=== PATIENT | female | born 2000 | race Caucasian/White ===

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

== ENCOUNTER 2020-01-26 20:59 | Emergency (ER) | payer MEDICAID, SELFPAY ==
[2019-12-20 19:25] VITALS: BMI 23.9
[2020-01-26 21:00] VITALS: BP 110/81; PULSE 92; RESP 14; TEMP 35.6; O2SAT 98; BMI 21.4
--- NOTE | 2020-01-26 21:51 | ED.VIS.GEN ---
History of Present Illness Chief Complaint: Abd Pain Informant: Patient Narrative: Patient presented with UTI symptoms for the last few days. She describes dysuria. She has suprapubic pain. She has no vaginal complaints. No fever, chills, nausea, vomiting. She has no medical problems. He has no concerns for STDs or . Past Medical History - Allergies and Home Meds Allergies/Adverse Reactions: Allergies No Known Allergies Allergy (Verified 01/26/20 20:59) Primary Care Physician: Amy Rose MD [Primary Care Provider] - Past Medical History: None Surgical History: noncontributory Lives: With Family Smoking Status: Never smoker Alcohol: None Drugs: None Review of Systems General: Denies: Chills, Fever, Sweats Eyes: Denies: Visual changes - bilaterally, Diplopia ENT: Denies: Rhinorrhea, Sore throat Cardiovascular: Denies: Chest pain, Palpitations Respiratory: Denies: Dyspnea, Cough, Dyspnea on exertion Gastrointestinal: Reports: Abdominal pain - Suprapubic Genitourinary: Reports: Dysuria, Frequency Musculoskeletal: Denies: Myalgias, Arthralgias Skin: Denies: Rash, Abscess Neurological: Denies: Headache, Weakness Physical Exam Vital Signs/Narrative: Vital Signs Temp Pulse Resp BP Pulse Ox 01/26/20 21:00 96.1 F L 92 14 110/81 H 98 General: Well nourished, Well developed, No Acute Distress Head: Normocephalic, Atraumatic Eyes: Perrl, EOMI ENT: Moist mucous membranes, No rhinorrhea Neck: Supple, Nontender Cardiovascular: Regular rate Respiratory: No distress, CTA bilaterally, Chest nontender Abdomen: Soft, Nondistended, Normal bowel sounds, - - Out suprapubic tenderness. Back: Nontender, Normal Inspection. Negative for: CVA tenderness Skin: Normal color, No rash Neurological: Alert, Oriented x3 Diagnostic/Tx/Re-eval - Medical Decision Making Patient presents with urinary symptoms consistent with previous UTI that she has had. Her urinalysis was positive. She started on Keflex in the ED. She is given a prescription for Keflex at home as well as Pyridium. Urine culture was sent. Patient is given return precautions she is stable for discharge. Impression: 1. UTI ED Disposition - Plan for ED Patient: Disposition: Home or Assisted Living Instructions: ED CYSTITIS Female Adult Prescriptions: Cephalexin [Keflex] 500 mg PO Q12 #14 cap Transmission Status: Received by [id number] Phenazopyridine HCl [Pyridium] 200 mg PO BID PRN PRN 3 Days #6 tab PRN Reason: Pain Transmission Status: Received by [id number] Referrals: Amy Rose MD [Primary Care Provider] -
[2020-01-26 22:04] LABS: Mucous, Urine 0 SEEN /hpf (<or=2+); Red Blood Cells-Urine 0 SEEN /hpf (0-5)
[2020-01-26 22:10] LABS: Color, Urine Yellow (Yellow); Glucose, Dipstick Normal (Normal); Ketone-Dipstick Negative (Negative); Leukocyte Esterase-Dipstick 500 /ul (Negative); Nitrite-Dipstick Negative (Negative); Occult Blood-Urine 10 /ul (Negative); Protein-Dipstick 15 mg/dl (Negative); Specific Gravity, Urine 1.015 (1.002-1.030); Urine Bilirubin Dipstick Negative (Negative); Urine Clarity Cloudy (Clear); Urine Urobilinogen Normal (Normal)
[2020-01-26 22:19] LABS: Bacteria RARE /hpf (None Seen); Squamous Epithelial Cells - UA 0-5 SEEN /hpf (5-10); White Blood Cells 10-25 SEEN /hpf (0-5)
[2020-01-26] MEDS: Cephalexin 250 MG Capsule 500 MG PO (22:43)
[2020-01-26 22:51] VITALS: RESP 16
== END 2020-01-26 22:51 | disposition home or self-care (01) ==
PROVIDERS: Emergency Provider Student in an Organized Health Care Education/Training Program; PCP Pediatrics
DX: N39.0 Urinary tract infection, site not specified (principal)
CPT/HCPCS: 81001; 87086; 87088; 99283

== ENCOUNTER 2020-04-05 17:42 | Emergency (ER) | payer MEDICAID, SELFPAY ==
[2020-04-05 17:43] VITALS: BP 117/70; PULSE 100; RESP 18; TEMP 36.4; O2SAT 98; BMI 22.4
--- NOTE | 2020-04-05 18:22 | ED.DCSUM_ITS ---
History of Present Illness Chief Complaint: Vag Bld, Preg Informant: Patient Onset: Days Context: Gradual Onset Timing: Intermittent Current Severity: Moderate Maximum Severity: Moderate Narrative: The patient is a 20-year-old female with history of 1 prior that presents to the emergency department vaginal bleeding. Patient states she has been having bleeding off and on since March 13. States over the past 24 hours, is gotten more heavy. She states that she is going through 2 pads an hour. She is had some scant clots. She denies any weakness or lightheadedness. She is concerned because she had 2 - home test, and then a +1 4 days ago which corresponds with the increase in bleeding. She does have some abdominal cramping but denies any kd pain. She is otherwise been in her normal state of health. Prior similar symptoms: No Recent Illness/Hospitalization: No Past Medical History - Allergies and Home Meds Allergies/Adverse Reactions: Allergies No Known Allergies Allergy (Verified 04/05/20 17:46) Primary Care Physician: Aym Rose MD [Primary Care Provider] - Prior records reviewed: Yes Past Medical History: None Surgical History: noncontributory Smoking Status: Never smoker Review of Systems General: Denies: Chills, Fever, Sweats Eyes: Denies: Visual changes - bilaterally, Diplopia ENT: Denies: Rhinorrhea, Sore throat Cardiovascular: Denies: Chest pain, Palpitations Respiratory: Denies: Dyspnea, Cough, Dyspnea on exertion Gastrointestinal: Denies: Abdominal pain, Nausea, Vomiting, Diarrhea, Melena, Hematochezia Genitourinary: Denies: Dysuria, Hematuria, Frequency Musculoskeletal: Denies: Back pain, Extremity Pain Skin: Denies: Rash, Wounds Neurological: Denies: Headache, Weakness, Numbness Physical Exam Vital Signs/Narrative: Vital Signs Temp Pulse Resp BP Pulse Ox 04/05/20 17:43 97.5 F L 100 18 117/70 98 Inital Vital Signs reviewed: Yes General: Well nourished, Well developed, No Acute Distress Head: Normocephalic, Atraumatic Eyes: Perrl, EOMI ENT: Moist mucous membranes, No rhinorrhea Neck: Supple, Nontender Cardiovascular: Regular rate, Regular rhythm, No murmurs Respiratory: No distress, CTA bilaterally, Chest nontender Abdomen: Soft, Nontender, Nondistended, Normal bowel sounds Back: Nontender, Normal Inspection Extremities: Nontender, No edema Skin: Normal color, No rash Neurological: Alert, Oriented x3, Cranial nerves II-XII grossly intact, Normal Strength, Normal Sensation Psychological: Normal affect, Normal Mood Diagnostic/Tx/Re-eval Abnormal Lab Results 04/05/20 04/05/20 18:35 18:35 WBC 7.1 RBC 4.27 Hgb 12.5 Hct 38.5 MCV 90.2 MCH 29.3 MCHC 32.5 RDW Std Deviation 39.9 RDW Coeff of Nakia 12.2 Plt Count 260 MPV 10.6 Immature Gran % (Auto) 0.300 Neut % (Auto) 50.8 Lymph % (Auto) 39.3 Swift % (Auto) 6.6 Eos % (Auto) 2.7 Baso % (Auto) 0.3 Absolute Neuts (auto) 3.6 Absolute Lymphs (auto) 2.78 Nucleated RBC % 0 HCG, Quant < 1 - Medical Decision Making Patient presents with vaginal bleeding concerned that she may be . Her abdomen is soft and nontender. IV was established. She was given fluids. She is not tachycardic or hypotensive. CBC is unremarkable. The patient's quant is less than 1. On reevaluation, she is resting comfortably. I did employment counselor her th is is likely a false positive home test. She did recently have delivery 7 months ago and has been having some irregular bleeding since. I did employment counselor her on the importance of following up with [employer]. She will be discharged home. Impression 1. Irregular vaginal bleeding ED Disposition - Plan for ED Patient: Instructions: ED Bleed Irregular Vaginal Referrals: Amy Rose MD [Primary Care Provider] -
[2020-04-05] MEDS: 0.9% Normal Saline 1,000 ML 1000 ML IV (18:37)
[2020-04-05 18:46] LABS: Mucous, Urine 0 SEEN /hpf (<or=2+)
[2020-04-05 18:48] LABS: Color, Urine Yellow (Yellow); Glucose, Dipstick Normal (Normal); Ketone-Dipstick 5 mg/dl (Negative); Leukocyte Esterase-Dipstick 100 /ul (Negative); Nitrite-Dipstick Positive (Negative); Occult Blood-Urine 250 /ul (Negative); Protein-Dipstick 30 mg/dl (Negative); Urine Bilirubin Dipstick Negative (Negative); Urine Clarity Cloudy (Clear); Urine Urobilinogen Normal (Normal)
[2020-04-05 18:49] LABS: Absolute Lymphocyte Count 2.78 X10^3/uL (0.83-4.51); Absolute Neutrophil Count 3.6 X10^3/uL (2.0-7.7); Basophil# 0.02 X10^3/uL; Basophil% 0.3 % (0-1); Eosinophil# 0.19 X10^3/uL; Eosinophils% 2.7 % (0-5); Hematocrit 38.5 % (37-47); Hemoglobin 12.5 g/dL (12.0-15.0); Lymphocyte # 2.78 X10^3/ul (4.0); Lymphocyte % 39.3 % (19-41); Mean Corp Hgb Conc 32.5 g/dL (32-36); Mean Corpuscular Hgb 29.3 pg (27.0-32.0); Mean Corpuscular Volume 90.2 fL (81-99); Mean Platelet Vol. 10.6 fl (6.2-12.0); Monocyte# 0.47 X10^3/uL; Monocyte% 6.6 % (0-10); NRBC Flagged by Analyzer 0 % (0-5); Neutrophil # 3.59 X10^3/uL (2.7-7.7); Neutrophil % 50.8 % (47-70); Platelet Count 260 K/mm3 (150-450); RBC Distribution Width CV 12.2 % (11.6-14.6); RBC Distribution Width SD 39.9 fl (35.1-43.9); Red Blood Count 4.27 M/mm3 (4.2-5.4); White Blood Count 7.1 K/mm3 (4.4-11.0)
[2020-04-05 19:03] LABS: hCG Titer Quant., Serum < 1 mIU/mL (1-3)
[2020-04-05 19:20] LABS: Bacteria 3+ /hpf (None Seen); Red Blood Cells-Urine 50-100 SEEN /hpf (0-5); Squamous Epithelial Cells - UA 5-10 SEEN /hpf (5-10); White Blood Cells 25-50 SEEN /hpf (0-5)
[2020-04-05 19:21] LABS: Amorphous Sediment 1+ URATE
[2020-04-05 19:35] VITALS: RESP 18
== END 2020-04-05 19:36 | disposition home or self-care (01) ==
LOC: ED 18:54
PROVIDERS: Emergency Provider Emergency Medicine; PCP Pediatrics
DX: N93.9 Abnormal uterine and vaginal bleeding, unspecified (principal)
CPT/HCPCS: 81001; 84702; 85025; 96360; 99283; J7030

== ENCOUNTER 2020-11-14 22:23 | Emergency (ER) | payer MEDICAID, SELFPAY ==
[2020-11-14 22:24] VITALS: BP 117/80; PULSE 90; RESP 16; TEMP 36.7; O2SAT 96; BMI 22.8
[2020-11-14 22:38] LABS: Mucous, Urine 0 SEEN /hpf (<or=2+); Red Blood Cells-Urine 0 SEEN /hpf (0-5)
[2020-11-14 22:41] LABS: Color, Urine Yellow (Yellow); Glucose, Dipstick Normal (Normal); Ketone-Dipstick Negative (Negative); Leukocyte Esterase-Dipstick 100 /ul (Negative); Nitrite-Dipstick Negative (Negative); Occult Blood-Urine Negative /ul (Negative); Protein-Dipstick 15 mg/dl (Negative); Urine Bilirubin Dipstick Negative (Negative); Urine Clarity Clear (Clear); Urine Urobilinogen Normal (Normal)
[2020-11-14 22:48] LABS: Squamous Epithelial Cells - UA 0-5 SEEN /hpf (5-10); White Blood Cells 10-25 SEEN /hpf (0-5)
[2020-11-14 22:49] LABS: Bacteria 2+ /hpf (None Seen)
--- NOTE | 2020-11-14 23:42 | ED.VIS.FEGU ---
HPI HPI - Female History of Present Illness Chief Complaint: Complaint Informant: patient Narrative Narrative: Dysuria urgency for the past week. No fevers. Reported that it may just go away. Developed pain on her right side to her back. Denies vomiting or diarrhea. History UTI over a year ago. Last menstrual period on the third of this month. Denies any allergies. Is tolerating oral intake. Prior similar symptoms: Yes PFSH PFSH Home Medications nitrofurantoin macrocrystal 100 mg PO Q12H #14 cap 11/14/20 [Rx Last Taken Unknown] phenazopyridine [Pyridium] 200 mg PO TID PRN #6 tab 11/14/20 [Rx Last Taken Unknown] Allergy/AdvReac Type Severity Reaction Status Date / Time No Known Allergies Allergy Verified 11/14/20 22:26 Social History Smoking Status: Never smoker ROS ROS ED Constitutional Constitutional ED: Denies chills, fever(s) or sweats Eyes Eyes: Denies change in vision ENT ENT ED: Denies dysphagia or sore throat Cardiovascular Cardiovascular: Denies chest pain, leg edema, palpitations or racing heartbeat Respiratory/Chest Respiratory/Chest: Denies cough, dyspnea or dyspnea on exertion Gastrointestinal Gastrointestinal: Denies abdominal pain, diarrhea, nausea or vomiting Genitourinary Genitourinary ED: Reports dysuria and other Details: Urgency ; Denies hematuria Musculoskeletal Musculoskeletal: Denies back pain, extremity pain or neck pain Integumentary Denies rash or wounds Neurologic Neurologic: Denies headache(s), paresthesias or weakness EXAM Physical Exam Const Vital Signs: 11/14/20 22:24 Temperature 98.0 F Temperature Source Temporal Pulse Rate 90 Respiratory Rate 16 Blood Pressure 117/80 Blood Pressure Mean 92 Pulse Ox 96 Oxygen Delivery Method Room Air Positive well nourished and well developed Constitutional Narrative: Nontoxic General Appearance ED: well developed and NAD HEENT Reports moist mucous membranes normocephalic and atraumatic Eyes PERRL, EOMs intact bilaterally and conjunctivae normal General Eye ED: Yes normal appearance of both eyes Neck no lymphadenopathy and supple General: Negative for tenderness Chest Wall Chest: Negative for tenderness Resp normal respiratory effort and normal air movement Effort and Inspection: symmetric chest movement; Negative for respiratory distress Cardio regular rate, regular rhythm and no murmurs Peripheral Pulses: pulses 2+ throughout GI normal to inspection, nondistended, normoactive bowel sounds and non-tender GI Narrative: Negative Burnett's or McBurney's tenderness. Palpation: Negative for guarding or rebound tenderness present Narrative: Mild right CVA tenderness Back/Spine no CVA tenderness and no thoracic nor lumbar tenderness Extremity normal to inspection General Extremety ED: Negative for edema or tenderness General Extremity: Negative for edema Neuro oriented x3 and no sensory deficits noted Sensorium / Orientation: awake and alert Skin no rashes or lesions noted and no wounds MDM MDM MDM Narrative Medical decision making narrative: Patient vitals stable nontoxic. Urine obtained from triage note signs of infection. She started on Macrobid and Pyridium. Discussed strict return precautions. Otherwise follow-up with her PCP. All questions were answered. Lab Data Labs: Laboratory Results - last 24 hr 11/14/20 22:30 Urine Color Yellow Urine Clarity Clear Urine pH 5.0 Ur Specific Andrews 1.030 Urine Protein 15 H Urine Glucose (UA) Normal Urine Ketones Negative Urine Occult Blood Negative Urine Nitrite Negative Urine Bilirubin Negative Urine Urobilinogen Normal Ur Leukocyte Esterase 100 H Urine RBC 0 SEEN Urine WBC 10-25 SEEN Ur Squamous Epith Cells 0-5 SEEN Urine Bacteria 2+ Urine Mucus 0 SEEN Discharge Plan Triage Chief Complaint: Complaint ED Provider: Booker Hart Dx/Rx/DC Orders Clinical Impression: Urinary tract infection Instructions: Urinary Tract Infections in Women Prescriptions: New phenazopyridine [Pyridium] 200 mg tablet 200 mg PO TID PRN (Reason: pain) Qty: 6 RF: 0 nitrofurantoin macrocrystal 100 mg capsule 100 mg PO Q12H Qty: 14 RF: 0 Primary Care Provider: Care Physician,No Primary Referrals: Kathleen España MD [STAFF PHYSICIAN] - 1 Week Care Physician,No Primary [Primary Care Provider] - Disposition Disposition: Home, Self Care
[2020-11-15] MEDS: Phenazopyridine 95 MG Tablet 190 MG PO
[2020-11-15] MEDS: Nitrofurantoin Macrocrystals 100 MG Capsule PO
[2020-11-15 00:02] VITALS: BP 122/84; PULSE 88; RESP 15; O2SAT 97
== END 2020-11-15 00:03 | disposition home or self-care (01) ==
PROVIDERS: Emergency Provider Emergency Medicine
DX: N39.0 Urinary tract infection, site not specified (principal); Z87.440 Personal history of urinary (tract) infections
CPT/HCPCS: 81001; 99283

== ENCOUNTER 2021-01-05 09:31 | Emergency (ER) | payer MEDICAID, SELFPAY ==
[2021-01-05 09:32] VITALS: BP 103/68; PULSE 96; RESP 16; TEMP 36.5; O2SAT 97; BMI 22.4
--- NOTE | 2021-01-05 10:14 | EX.ED.DYSGE1 ---
HPI History of Present Illness Chief Complaint: Sore Throat Informant: patient Narrative Narrative: Patient is a 20-year-old previously healthy female who presents to the emergency department for sore throat, cough. She states that her symptoms have been present over the past week. She denies any significant fever. No body aches or headache. She states that her left ear has been hurting as well. She does not know of any sick exposures. She has not had her Covid vaccine. She states she does have a history of strep throat in the past. It does hurt to swallow. She has been taking [id number] medications which has not been giving her significant relief. She denies any chest pain or shortness of breath. No abdominal pain or nausea/vomiting. She has had some diarrhea. PFSH PFSH Allergy/AdvReac Type Severity Reaction Status Date / Time No Known Allergies Allergy Verified 01/05/21 09:32 Social History Smoking Status: Never smoker ROS ROS ED Constitutional Constitutional ED: Denies chills or fever(s) Eyes Eyes: Denies change in vision ENT ENT ED: Reports ear pain, rhinorrhea and sore throat; Denies epistaxis Cardiovascular Cardiovascular: Denies chest pain Respiratory/Chest Respiratory/Chest: Reports cough and sputum; Denies dyspnea or dyspnea on exertion Gastrointestinal Gastrointestinal: Denies abdominal pain, nausea or vomiting Genitourinary Genitourinary ED: Denies dysuria, hematuria or urinary frequency Musculoskeletal Musculoskeletal: Denies back pain or neck pain Integumentary Denies rash Neurologic Neurologic: Denies dizziness, headache(s) or weakness EXAM Physical Exam Const Vital Signs: 01/05/21 09:32 01/05/21 09:59 01/05/21 11:36 Temperature 97.7 F L Temperature Source Temporal Pulse Rate 96 81 Respiratory Rate 16 16 Respiratory Effort Normal Respiratory Pattern Normal Blood Pressure 103/68 134/79 H Blood Pressure Mean 79 Pulse Ox 97 99 Oxygen Delivery Method Room Air Positive well nourished and well developed General Appearance ED: well developed and NAD HEENT Reports normocephalic, head/scalp atraumatic and moist mucous membranes HEENT Narrative: Mild erythema posterior oropharynx. No lesions appreciated. Uvula midline. No abscess present. Left tympanic membrane and ear canal appear normal. Right tympanic membrane is obstructed by cerumen impaction but no significant swelling of external canal. Eyes PERRL and EOMs intact bilaterally Neck no lymphadenopathy and supple General: Negative for tenderness Chest Wall inspection of chest normal Resp normal respiratory effort and clear to auscultation bilaterally Auscultation: Negative for rales, rhonchi or wheezes Cardio regular rate, regular rhythm and no murmurs GI normal to inspection, nondistended, normoactive bowel sounds and non-tender Palpation: soft; Negative for guarding or rebound tenderness present Back/Spine no CVA tenderness Extremity normal to inspection General Extremety ED: Negative for edema or tenderness General Extremity: Negative for edema Neuro CN's II-XII intact bilaterally and no sensory deficits noted Sensorium / Orientation: alert Motor Exam: strength 5/5 throughout Psych mental status grossly normal Skin no rashes or lesions noted MDM MDM MDM Narrative Medical decision making narrative: Patient presents to the emergency department for 1 week of sore throat, cough, earache. On arrival to the ED vital signs within normal limits. She is afebrile. She is a benign physical exam. Will check strep swab as well as Covid swab. Patient's Covid swab did come back negative. Her strep swab was positive. She is given an IM dose of penicillin. She has remained stable throughout ED stay. Will recommend symptomatic treatment otherwise. She is to follow-up with her PCP. Return precautions reviewed. She understands and is agreeable with this plan. Discharge Plan Triage Chief Complaint: Sore Throat ED Provider: Irwin Smiley Dx/Rx/DC Orders Clinical Impression: Strep throat Instructions: ED Pharyngitis, Strep (Confirmed) Primary Care Provider: Care Physician,No Primary Referrals: Care Physician,No Primary [Primary Care Provider] - 3-5 Days Disposition Disposition: Home, Self Care Discharge Date/Time: 01/05/21 11:38
[2021-01-05] MEDS: Penicillin G Benzathine 1.2 MU/2 ML Syringe IM (11:15)
[2021-01-05 11:36] VITALS: BP 134/79; PULSE 81; RESP 16; O2SAT 99
--- NOTE | 2021-01-05 11:37 | ED.RN ---
THIS NURSE REVIEWED D/C INSTRUCTIONS WITH PT. PT VERBALIZED UNDERSTANDING OF INSTRUCTIONS. PT DENIES FURTHER NEEDS OR QUESTIONS AT THIS TIME. PT AMBULATES FROM ROOM ON OWN WITHOUT ASSISTANCE FROM STAFF
== END 2021-01-05 11:38 | disposition home or self-care (01) ==
PROVIDERS: Emergency Provider Emergency Medicine
DX: J02.0 Streptococcal pharyngitis (principal)
CPT/HCPCS: 87426; 87880; 96372; 99282

== ENCOUNTER 2021-02-26 15:39 | Emergency (ER) | payer MEDICAID, SELFPAY ==
[2021-02-26 15:39] VITALS: BP 109/75; PULSE 103; RESP 16; TEMP 36.2; O2SAT 96; BMI 20.5
--- NOTE | 2021-02-26 15:46 | RAD_ITS ---
STUDY: X-RAY - UNILATERAL RIBS ( LEFT ) WITH CHEST REASON FOR EXAM: Female, 21 years old. LEFT RIB PAIN TECHNIQUE - RIBS: 3 view(s) of the ribs. TECHNIQUE - CHEST: Single PA view of the chest. COMPARISON: None. FINDINGS - RIBS: Normal visualized ribs without a demonstrated fracture. FINDINGS - CHEST: The lungs are clear and expanded. There is no demonstrated pleural abnormality. Normal size heart. Normal mediastinum and donato. Normal visualized pulmonary arteries. Normal visualized aortic arch and descending thoracic aorta. Normal visualized thoracic spine. Normal visualized ribs, clavicles, and shoulders. There is no demonstrated abnormality of the visualized soft tissue structures of the upper abdomen. RAD/Ribs Uni Min 3V w/PA Chest IMPRESSION: RIBS: Normal x-ray examination of the ribs. CHEST: Normal x-ray examination of the chest. Electronically Signed: Mika Hart MD at 16:03 EDT Tel , Service support ,
--- NOTE | 2021-02-26 16:13 | ED.RN ---
Left rib pain x1 week, while sitting, standing or lying. Cough; no fever reported. Some chills. Has not taken any pain medication.
--- NOTE | 2021-02-26 16:33 | EX.ED.DYSGE1 ---
HPI History of Present Illness Chief Complaint: Chest Other Detail of Chief Complaint: Cough and left-sided chest pain Informant: patient Narrative Narrative: Patient presents to the emergency department complaint of a cough for about a week and left-sided chest pain for about a week. Patient states that the pain in her sides worse with movement and deep breath. Patient's had fever at home and chills. She describes body aches. She denies any Covid exposures but she is not vaccinated against Covid. No recent travel or surgery. No history of PE or DVT. Patient is not on hormone therapy. Prior similar symptoms: No PFSH PFSH Medical History no medical history Allergy/AdvReac Type Severity Reaction Status Date / Time No Known Allergies Allergy Verified 01/05/21 09:32 Social History Smoking Status: Never smoker ROS ROS ED Constitutional Constitutional ED: Reports systems reviewed and no addt'l complaints, except as documented, chills and fever(s); Denies body ache(s) or change in weight Eyes Eyes: Denies acute decrease in peripheral vision, change in vision, double vision or loss of vision ENT ENT ED: Reports none; Denies ear pain, lip swelling, loss taste/smell, neck pain, otalgia or sore throat Cardiovascular Cardiovascular: Reports none and chest pain; Denies abdominal pain, chest pain with activity, leg edema, lightheadedness, palpitations, rapid heart rate or syncope Respiratory/Chest Respiratory/Chest: Reports none and cough; Denies change in mental status, dry cough, dyspnea, hemoptysis, shortness of breath at rest or shortness of breath with exertion Gastrointestinal Gastrointestinal: Reports none; Denies abdominal pain, change in stool character, diarrhea, hematemesis, hematochezia, melena, rectal bleeding or vomiting Genitourinary Genitourinary ED: Reports none; Denies abdominal discomfort, anuria, dysuria, genital pain or polyuria Musculoskeletal Musculoskeletal: Reports none; Denies arthralgias, back pain, difficulty walking, extremity pain, muscle weakness or myalgias Integumentary Reports none; Denies abscess or rash Neurologic Neurologic: Reports none; Denies abnormal gait, confusion, focal weakness, frequent falls, headache(s), loss of vision, numbness, paresthesias, radicular pain, vertigo or weakness Psychiatric Psychiatric: Reports systems reviewed and no addt'l complaints, except as documented and none; Denies behavioral changes, confusion, difficulty concentrating, hallucinations, suicidal ideation, tactile hallucinations or visual hallucinations Endocrine Endocrinology: Denies none, cold intolerance, excessive sweating, fatigue or heat intolerance Hematologic/Lymphatic Hematologic/Lymphatic: Reports none; Denies anemia, easy bleeding or easy bruising Allergic/Immunologic Allergic/Immunologic ED: Denies as per HPI, none, lip swelling, mouth swelling, throat swelling, tongue swelling or hives EXAM Physical Exam Const Vital Signs: 02/26/21 15:39 02/26/21 17:00 Temperature 97.1 F L Temperature Source Temporal Pulse Rate 103 H Respiratory Rate 16 Respiratory Effort Normal Non-Labored Respiratory Pattern Normal Blood Pressure 109/75 Blood Pressure Mean 86 Pulse Ox 96 Oxygen Delivery Method Room Air Positive well nourished and well developed General Appearance ED: well developed and NAD HEENT Reports TM's clear and moist mucous membranes normocephalic and atraumatic; Negative for trauma or tenderness Tympanic Membrane ED: Yes TM's clear Eyes PERRL and EOMs intact bilaterally General Eye ED: Negative for pale conjunctiva or scleral icterus Neck no lymphadenopathy, supple and no JVD General: Negative for tenderness Chest Wall inspection of chest normal Chest Narrative: Patient has tenderness palpation over the left ribs in the midaxillary line that seems to reproduce her pain. There is no ecchymosis or bruising noted. There is no erythema. No crepitus or subcu emphysema. Chest: Negative for tenderness Resp normal respiratory effort and clear to auscultation bilaterally Effort and Inspection: Negative for respiratory distress or pain with movement Auscultation: Negative for rhonchi, wheezes or diminished lung sounds Cardio regular rate, regular rhythm, S1 normal heart sound, S2 normal heart sound and no murmurs Peripheral Pulses: pulses 2+ throughout GI normal to inspection, nondistended, normoactive bowel sounds, soft to palpation, non-tender, non-distended and no masses Back/Spine no CVA tenderness and no thoracic nor lumbar tenderness Extremity normal to inspection General Extremety ED: Negative for edema General Extremity: Negative for edema Neuro oriented x3, CN's II-XII intact bilaterally, no sensory deficits noted and gait normal Sensorium / Orientation: awake, alert, oriented to person, oriented to place and oriented to time Motor Exam: strength 5/5 throughout and strength abnormal Psych mental status grossly normal Skin no rashes or lesions noted and no wounds MDM MDM MDM Narrative Medical decision making narrative: Discussed results with patient. I suspect she likely has a viral upper respiratory infection and could possibly have Covid. The PCR test is pending. Patient also suspect likely has a chest wall strain. She will use ibuprofen or Tylenol for discomfort. She is advised to follow-up with her primary care physician or physician customer support consultant for no doc within the next 5 to 7 days. Patient will be discharged to home and she will await her PCR results and should get a result on her phone when available. Lab Data Attestation: I reviewed the patient's lab results. Labs: Laboratory Results - last 24 hr 02/26/21 02/26/21 02/26/21 16:55 16:55 16:55 WBC 5.9 RBC 4.36 Hgb 12.4 Hct 38.2 MCV 87.6 MCH 28.4 MCHC 32.5 RDW Std Deviation 42.5 RDW Coeff of Nakia 13.2 Plt Count 241 MPV 10.5 Immature Gran % (Auto) 0.200 Neut % (Auto) 45.5 L Lymph % (Auto) 43.3 H Payette % (Auto) 8.5 Eos % (Auto) 2.0 Baso % (Auto) 0.5 Absolute Neuts (auto) 2.7 Absolute Lymphs (auto) 2.54 Nucleated RBC % 0 D-Dimer Quant (PE/DVT) 0.49 Sodium 142 Potassium 3.3 L Chloride 107 Carbon Dioxide 27.0 Anion Gap 8 BUN 6 L Creatinine 0.68 Estim Creat Clear Calc 126.51 Est GFR (MDRD) Af Amer 140 Est GFR (MDRD) Non-Af 116 BUN/Creatinine Ratio 8.8 L Glucose 91 Calcium 9.5 Radiography Diagnostic Testing: Radiology Impression Ribs w/Chest X-Ray 02/26/21 15:46 IMPRESSION: RIBS: Normal x-ray examination of the ribs. CHEST: Normal x-ray examination of the chest. Electronically Signed: Mika Hart MD at 16:03 EDT Tel , Service support , Three-view x-rays of ribs and PA chest x-ray 1 view obtained interpreted by myself as no acute fractures and no evidence of infiltrate or acute disease process. Radiology was in agreement. Discharge Plan Triage Chief Complaint: Chest Other ED Provider: Marva Gallegos Dx/Rx/DC Orders Clinical Impression: Viral URI, Chest wall muscle strain Instructions: ED Strain Chest Wall, ED URI, Viral, No Abx (Adult) Primary Care Provider: Care Physician,No Primary Referrals: Meet Dalal DO [STAFF PHYSICIAN] - 5-7 Days Care Physician,No Primary [Primary Care Provider] - Disposition Disposition: Home, Self Care
[2021-02-26 17:04] LABS: Absolute Lymphocyte Count 2.54 X10^3/uL (0.83-4.51); Absolute Neutrophil Count 2.7 X10^3/uL (2.0-7.7); Basophil# 0.03 X10^3/uL; Basophil% 0.5 % (0-1); Eosinophil# 0.12 X10^3/uL; Hematocrit 38.2 % (37-47); Hemoglobin 12.4 g/dL (12.0-15.0); Lymphocyte # 2.54 X10^3/ul (0.83-4.51); Lymphocyte % 43.3 % (19-41); Mean Corp Hgb Conc 32.5 g/dL (32-36); Mean Corpuscular Hgb 28.4 pg (27.0-32.0); Mean Corpuscular Volume 87.6 fL (81-99); Mean Platelet Vol. 10.5 fl (6.2-12.0); Monocyte% 8.5 % (0-10); NRBC Flagged by Analyzer 0 % (0-5); Neutrophil # 2.66 X10^3/uL (2.7-7.7); Neutrophil % 45.5 % (47-70); Platelet Count 241 K/mm3 (150-450); RBC Distribution Width CV 13.2 % (11.6-14.6); RBC Distribution Width SD 42.5 fl (35.1-43.9); Red Blood Count 4.36 M/mm3 (4.2-5.4); White Blood Count 5.9 K/mm3 (4.4-11.0)
[2021-02-26 17:13] LABS: D-Dimer Quantitative (DVT/PE) 0.49 FEU/ug/m (0.27-0.49)
[2021-02-26 17:14] LABS: Anion Gap 8 (5-15); BUN 6 mg/dL (7-18); BUN/Creat Ratio 8.8 RATIO (10-20); Calcium,Total 9.5 mg/dL (8.5-10.1); Chloride 107 mmol/L (98-107); Creatinine, Serum 0.68 mg/dL (0.55-1.02); EST Glomerular Filtration Rate 116 mL/min (>60); Est Glom Filt Rate - Afr Amer 140 mL/min (>60); Estimated Creatinine Clearance 126.51 ml/min; Glucose 91 mg/dL (74-106); Potassium 3.3 mmol/L (3.5-5.1); Sodium Level 142 mmol/L (136-145)
[2021-02-26 17:35] VITALS: RESP 14
== END 2021-02-26 17:36 | disposition home or self-care (01) ==
PROVIDERS: Emergency Provider Emergency Medicine
DX: J06.9 Acute upper respiratory infection, unspecified (principal); S29.011A Strain of muscle and tendon of front wall of thorax, initial encounter; Z20.822 Contact with and (suspected) exposure to COVID-19; X58.XXXA Exposure to other specified factors, initial encounter; Y93.9 Activity, unspecified; Y92.9 Unspecified place or not applicable; Y99.9 Unspecified external cause status
CPT/HCPCS: 71101; 80048; 85025; 85379; 87635; 99283; U0005; A4216; U0003

== ENCOUNTER 2021-04-24 17:23 | Emergency (ER) | payer MEDICAID, SELFPAY ==
[2021-04-24 17:24] VITALS: BP 101/70; PULSE 102; RESP 15; TEMP 36.2; O2SAT 99; BMI 20.2
--- NOTE | 2021-04-24 17:52 | ED.VIS.DENTA ---
HPI History of Present Illness Chief Complaint: Dental Informant: patient Onset/Context/Timing Onset: Days Context: Gradual Onset Current Severity: Mild Maximum Severity: Mild Narrative Narrative: Patient presents with pain and jaw swelling along the left mandible secondary to an infected tooth. She states that she has had multiple infected teeth. She is followed with Margi Collier but states they have not been able to pull any teeth. She states recently one of her teeth that was previously bad broke off further and now she had increased pain and swelling. She reports a mild fever last night that broke with Tylenol. No difficulty swallowing. PFSH PFSH Medical History no medical history no medical history Home Medications naproxen [Naprosyn] 500 mg PO BID PRN #20 tab 04/24/21 [Rx Last Taken Unknown] penicillin V potassium 500 mg PO 4X/DAY #40 tab 04/24/21 [Rx Last Taken Unknown] Allergy/AdvReac Type Severity Reaction Status Date / Time No Known Allergies Allergy Verified 01/05/21 09:32 Social History Smoking Status: Never smoker ROS ROS ED Constitutional Constitutional ED: Reports fever(s) Eyes Eyes: Denies blurry vision or change in vision ENT ENT ED: Reports ear pain left Cardiovascular Cardiovascular: Denies chest pain Respiratory/Chest Respiratory/Chest: Denies cough or dyspnea Gastrointestinal Gastrointestinal: Denies abdominal pain, diarrhea or vomiting Musculoskeletal Musculoskeletal: Denies neck pain Integumentary Denies rash Neurologic Neurologic: Denies headache(s) Allergic/Immunologic Allergic/Immunologic ED: Denies urticaria EXAM Physical Exam Const Vital Signs: 04/24/21 17:24 Temperature 97.1 F L Temperature Source Temporal Pulse Rate 102 H Respiratory Rate 15 Blood Pressure 101/70 Blood Pressure Mean 80 Pulse Ox 99 Oxygen Delivery Method Room Air Positive well nourished and well developed General Appearance ED: well developed HEENT Reports TM's clear HEENT Narrative: Multiple dental caries noted. Left first molar on the mandibular surface is decayed with surrounding tenderness. Posterior pharynx exam normal. No trismus and no evidence of Marcos's angina. Tympanic Membrane ED: Yes TM's clear Eyes PERRL and EOMs intact bilaterally Neck no lymphadenopathy and supple Chest Wall inspection of chest normal and palpation of chest normal Resp normal respiratory effort and clear to auscultation bilaterally Cardio regular rate and regular rhythm Neuro oriented x3 Sensorium / Orientation: alert Psych mental status grossly normal Skin no rashes or lesions noted MDM MDM MDM Narrative Medical decision making narrative: Patient was treated with Naprosyn and Pen-Vee K. She will be given a dental referral list so she can see someone else for a second opinion if she wishes. Discharge Plan Triage Chief Complaint: Dental ED Provider: Monae Byers Dx/Rx/DC Orders Clinical Impression: Odontalgia Instructions: ED Dental Pain Prescriptions: New naproxen [Naprosyn] 500 mg tablet 500 mg PO BID PRN (Reason: pain) Qty: 20 RF: 0 penicillin V potassium 500 mg tablet 500 mg PO 4X/DAY Qty: 40 RF: 0 Primary Care Provider: Care Physician,No Primary Referrals: Care Physician,No Primary [Primary Care Provider] - Activity Restrictions/Additional Instructions: Dental list provided. Disposition Disposition: Home, Self Care
[2021-04-24] MEDS: Penicillin Vk 250 MG Tablet 500 MG PO (18:08)
[2021-04-24] MEDS: Naproxen 500 MG Tablet PO (18:08)
== END 2021-04-24 18:09 | disposition home or self-care (01) ==
PROVIDERS: Emergency Provider Emergency Medicine
DX: K08.89 Other specified disorders of teeth and supporting structures (principal); R22.0 Localized swelling, mass and lump, head; K02.9 Dental caries, unspecified; Z79.1 Long term (current) use of non-steroidal anti-inflammatories (NSAID)
CPT/HCPCS: 99283

== ENCOUNTER 2021-07-22 21:32 | Emergency (ER) | payer MEDICAID, SELFPAY ==
[2021-07-22 21:33] VITALS: BP 125/84; PULSE 106; RESP 18; TEMP 35.7; O2SAT 96; BMI 20.3
[2021-07-22 22:02] LABS: Internal QC Validated? YES +Cl - CLEAR BKGD; Pregnancy, Urine Negative Negative
--- NOTE | 2021-07-22 22:27 | EX.ED.DYSGE1 ---
HPI History of Present Illness Chief Complaint: General Illness Narrative Narrative: 21-year-old female presenting with dental pain on the left maxillary side. She has multiple dental caries and erosion of her teeth. She states she has a dentist appointment next week and was originally supposed to see a dentist this week but had some problems. Patient was on penicillin VK which was leftover from her mother's prescriptions and states that this helped initially but she ran out of it and now she has more swelling and pain. She denies difficulty swallowing or breathing. She has not had a fever. No nausea or vomiting. No facial swelling. PFSH PFSH Medical History no medical history Home Medications amoxicillin-pot clavulanate 1 tab PO BID #20 tab 07/22/21 [Rx Last Taken Unknown] naproxen [Naprosyn] 500 mg PO BID PRN #20 tab 07/22/21 [Rx Last Taken Unknown] Allergy/AdvReac Type Severity Reaction Status Date / Time No Known Allergies Allergy Verified 07/22/21 21:36 Social History Smoking Status: Never smoker ROS ROS ED Constitutional Constitutional ED: Denies fever(s) or weight loss Eyes Eyes: Denies blurry vision or diplopia ENT ENT ED: Reports other Details: Dental pain ; Denies rhinorrhea or sore throat Cardiovascular Cardiovascular: Denies chest pain or palpitations Respiratory/Chest Respiratory/Chest: Denies cough or dyspnea Gastrointestinal Gastrointestinal: Denies abdominal pain, nausea or vomiting Genitourinary Genitourinary ED: Reports other Details: Vaginal itching Musculoskeletal Musculoskeletal: Denies back pain, myalgias or neck pain Integumentary Denies rash Neurologic Neurologic: Denies headache(s) Psychiatric Psychiatric: Denies anxiety or depression EXAM Physical Exam Const Vital Signs: 07/22/21 21:33 07/22/21 22:12 Temperature 96.3 F L Temperature Source Temporal Pulse Rate 106 H Respiratory Rate 18 Respiratory Effort Normal Respiratory Pattern Normal Blood Pressure 125/84 H Blood Pressure Mean 97 Pulse Ox 96 Oxygen Delivery Method Room Air Positive well nourished General Appearance ED: NAD; Negative for pallor HEENT Reports moist mucous membranes Negative for trauma Mouth ED: Yes lips normal, Yes tongue normal, Yes salivary gland normal, No dysphonia, No drooling and No muffled voice Mouth: lips normal, tongue normal, salivary gland normal, No dysphonia, No drooling, No muffled voice and No thrush Teeth and Gingiva: abnormal tooth and associated gingiva Positive for tenderness and associated gingival edema, caries and teeth discoloration Throat: other Other Details: Multiple dental caries throughout with focal erosion of tooth #19 and associated gingival swelling without abscess. Resp normal respiratory effort and clear to auscultation bilaterally Cardio regular rate and regular rhythm Neuro oriented x3 and CN's II-XII intact bilaterally Sensorium / Orientation: alert Motor Exam: strength 5/5 throughout Psych mental status grossly normal Skin General Skin Exam: Negative for jaundice or pallor MDM MDM MDM Narrative Medical decision making narrative: Patient presenting with dental caries with focal erosion of tooth #19. She is a dental appointment next week and was taking penicillin VK that was leftover from her mom's prescription. She states is helped initially but her tooth is now hurting and swelling. She has no signs of Nasim's angina. She is otherwise feeling well but she does complain of vaginal itching after taking an antibiotic and she believes she has a yeast infection. She does not want a pelvic exam. She requests Diflucan which was provided. Since I am going to put her on Augmentin I will provide her with another dose of this for home. She will follow-up with her dentist. She is given return precautions. Impression: 1. Dental caries 2. Yeast infection Lab Data Labs: Laboratory Results - last 24 hr 07/22/21 21:42 Urine Test Negative Discharge Plan Triage Chief Complaint: General Illness ED Provider: Riaz Chung Dx/Rx/DC Orders Instructions: ED Dental Cavity Prescriptions: New amoxicillin-pot clavulanate 875-125 mg tablet 1 tab PO BID Qty: 20 RF: 0 naproxen [Naprosyn] 500 mg tablet 500 mg PO BID PRN (Reason: pain) Qty: 20 RF: 0 Primary Care Provider: Care Physician,No Primary Referrals: Care Physician,No Primary [Primary Care Provider] - Disposition Disposition: Home, Self Care
[2021-07-22] MEDS: Naproxen 500 MG Tablet PO (22:31)
[2021-07-22] MEDS: Amox/Clavulanate 875 MG Tablet PO (22:31)
[2021-07-22] MEDS: Fluconazole 100 MG Tablet 200 MG PO (22:31)
[2021-07-22 22:41] VITALS: BP 114/71; PULSE 84; RESP 17; O2SAT 97
== END 2021-07-22 22:42 | disposition home or self-care (01) ==
PROVIDERS: Emergency Provider Student in an Organized Health Care Education/Training Program; Visit Provider Student in an Organized Health Care Education/Training Program
DX: K02.9 Dental caries, unspecified (principal); B37.9 Candidiasis, unspecified
CPT/HCPCS: 81025; 99283

== ENCOUNTER 2021-08-25 12:59 | Emergency (ER) | payer MEDICAID, SELFPAY ==
[2021-08-25 12:59] VITALS: BP 107/73; PULSE 96; RESP 16; TEMP 36.6; O2SAT 100; BMI 18.5
--- NOTE | 2021-08-25 13:10 | CT_ITS ---
STUDY: CT ABDOMEN AND PELVIS WITH CONTRAST REASON FOR EXAM: Female, 21 years old. Abdominal pain RADIATION DOSAGE (If Supplied By Facility): CTDIvol = ( 11.28 ) mGy, DLP = ( 305.64 ) mGycm TECHNIQUE: Transaxial images were obtained from the dome of the diaphragm to the symphysis pubis without oral contrast. IV 75mL Isovue-300 was administered. Sagittal and coronal images were reconstructed. Individualized dose optimization techniques were used for this CT. COMPARISON: None. FINDINGS: The visualized lung bases are unremarkable. The visualized portions of the heart are within normal limits. Normal liver. Normal gallbladder and extrahepatic biliary system. Normal spleen. Normal pancreas. Normal bilateral adrenal glands. Normal right kidney. Normal left kidney. Normal visualized stomach. Normal small intestine. Normal colon. The appendix is visualized and appears normal. Mild fluid seen within the endocervical canal most likely related to the patient''s cycle. Otherwise grossly unremarkable uterus and adnexa. No free air or free fluid or bowel dilatation or evidence of obstruction. Moderate stool retention seen throughout the colon. Normal abdominal aorta. Normal inferior vena cava. Normal retroperitoneum. Normal urinary bladder. Normal abdominal wall. Normal osseous structures. CT/Abdomen/Pelvis W IV Cont ONLY IMPRESSION: 1. Mild fluid seen within the endocervical canal most likely related to the patient''s cycle. Otherwise grossly unremarkable uterus and adnexa. 2. No free air or free fluid or bowel dilatation or evidence of obstruction. 3. Moderate stool retention seen throughout the colon. Electronically Signed: Theodore Burroughs MD at 14:43 EDT ,
--- NOTE | 2021-08-25 13:12 | EDS_ITS ---
HPI <SHAMAR Buchanan - Last Filed: 08/25/21 15:13> History of Present Illness Chief Complaint: Abd Pain Narrative Narrative: 21-year-old female with no significant medical history presents the emergency department the left lower quadrant abdominal pain. Patient states this has began almost 2 weeks ago, she had her menstrual cycle, and finished yesterday. Patient states the pain is so bad now that even touching the side of her belly hurts. Patient denies any fevers chills, patient denies any blood in stool or vomit. Patient does complain of nausea vomiting. Patient denies any urinary or vaginal complaints. Patient denies any concern for STDs. Patient did have a full-term with normal delivery a couple years ago. Negative for any concerns for now. PFSH <SHAMAR Buchanan - Last Filed: 08/25/21 15:13> PFSH Medical History no medical history Home Medications cephalexin 500 mg PO Q12 #14 cap 08/25/21 [Rx Last Taken Unknown] magnesium citrate 150 ml PO DAILY #296 ml 08/25/21 [Rx Last Taken Unknown] Allergy/AdvReac Type Severity Reaction Status Date / Time No Known Allergies Allergy Verified 08/25/21 13:01 Social History Smoking Status: Never smoker ROS <SHAMAR Buchanan - Last Filed: 08/25/21 15:13> ROS ED ROS Narrative Constitutional: Negative for fever, chills, weight loss or gain, weakness Eyes: Negative for vision loss, vision change, double vision ENT: Negative for any hearing changes, ringing in the ears, discharge, pain Nose: Negative for any congestion, runny nose, sinus pain, allergies Throat: Negative for any sore throat, swelling, voice changes, Cardiovascular: Negative for any chest pain, tightness, palpitations, racing heartbeat Respiratory: Negative for any cough, sputum production, hemoptysis, shortness of breath, shortness of breath on exertion, Gastrointestinal: Negative for any diarrhea, constipation, blood in stool, blood in vomit. Positive for abdominal pain, nausea and vomiting : Negative for any urinary frequency, incontinence, dysuria, retention, blood in urine Muscle skeletal: Negative for any muscle joint pain, stiffness, myalgias, arthralgias, neck pain, back pain Neurological: Negative for any headache, dizziness, syncope, numbness or tingling Skin: Negative for any rashes, lumps, itching, abrasions, lacerations Psychiatric: Negative for any depression, anxiety, stress, suicidal ideation, homicidal ideation Hematologic: Negative for any easy bruising, excessive bruising, easy bleeding Allergies: Negative for any eczema, hives, rash EXAM <SHAMAR Buchanan - Last Filed: 08/25/21 15:13> Physical Exam Const Vital Signs: 08/25/21 12:59 08/25/21 15:15 Temperature 97.8 F Temperature Source Temporal Pulse Rate 96 69 Respiratory Rate 16 15 Blood Pressure 107/73 118/65 Blood Pressure Mean 84 Pulse Ox 100 99 Oxygen Delivery Method Room Air Positive well nourished and well developed General Appearance ED: well developed HEENT Reports TM's clear Negative for trauma Tympanic Membrane ED: Yes TM's clear Eyes PERRL and EOMs intact bilaterally Neck no lymphadenopathy and supple Chest Wall inspection of chest normal Resp normal respiratory effort and clear to auscultation bilaterally Cardio regular rate, regular rhythm and no murmurs GI non-distended Auscultation: normoactive bowel sounds Palpation: soft and tender LLQ (Patient on palpation began being tearful secondary to pain) Back/Spine no CVA tenderness Extremity normal to inspection Neuro oriented x3 and CN's II-XII intact bilaterally Sensorium / Orientation: alert Motor Exam: strength 5/5 throughout Psych mental status grossly normal Skin no rashes or lesions noted, no wounds and skin turgor normal General Skin Exam: elasticity normal <Dr. Marva Gallegos DO - Last Filed: 08/25/21 15:42> Physical Exam Const Vital Signs: 08/25/21 12:59 08/25/21 15:15 Temperature 97.8 F Temperature Source Temporal Pulse Rate 96 69 Respiratory Rate 16 15 Blood Pressure 107/73 118/65 Blood Pressure Mean 84 Pulse Ox 100 99 Oxygen Delivery Method Room Air MDM <SHAMAR Buchanan - Last Filed: 08/25/21 15:13> [facility] MDM Narrative Medical decision making narrative: Patient appears well, patient appears nontoxic, vital signs are stable. Patient presents to the emergency department with complaints of left-sided abdominal pain which has been ongoing for the last 2 weeks, patient has not had a bowel movement in 5 days. Patient did receive a full abdominal work-up, patient's laboratory values were grossly unremarkable, patient is not currently . Patient's urinalysis did show 1+ bacteria with 500 leukocytes as well as positive nitrates. However the sample did show 25-50 epithelial cells. This was sent for culture however due to the patient's pain, patient replaced on 7 days of Keflex twice a day. Patient also be given magnesium citrate prescription for home. Patient CT of the abdomen pelvis showed mild fluid seen within the endocervical canal most likely related to the patient's cycle. No free air or free fluid or bowel dilatation or evidence of obstruction. Moderate stool retention seen throughout the colon. Patient be diagnosed with urinary tract infection, constipation. Patient be treated with medication and instructed return for worsening symptoms Lab Data Labs: Laboratory Results - last 24 hr 08/25/21 08/25/21 08/25/21 13:20 13:20 13:20 WBC 4.8 RBC 3.94 L Hgb 11.4 L Hct 34.2 L MCV 86.8 MCH 28.9 MCHC 33.3 RDW Std Deviation 41.8 RDW Coeff of [place] 13.3 Plt Count 253 MPV 10.5 Immature Gran % (Auto) 0.200 Neut % (Auto) 40.3 L Lymph % (Auto) 49.0 H [place] % (Auto) 7.2 Eos % (Auto) 2.9 Baso % (Auto) 0.4 Absolute Neuts (auto) 2.0 Absolute Lymphs (auto) 2.37 Nucleated RBC % 0 Sodium 140 Potassium 3.5 Chloride 110 H Carbon Dioxide 25.0 Anion Gap 5 BUN 8 Creatinine 0.65 Estim Creat Clear Calc 116.06 Est GFR (MDRD) Af Amer 147 Est GFR (MDRD) Non-Af 122 BUN/Creatinine Ratio 12.3 Glucose 99 Calcium 8.8 Total Bilirubin 0.20 AST 11 L ALT 14 Alkaline Phosphatase 66 Total Protein 7.3 Albumin 3.7 Globulin 3.6 Albumin/Globulin Ratio 1.0 Lipase 125 Serum , Qual NEGATIVE Urine Color Urine Clarity Urine pH Ur Specific [place] Urine Protein Urine Glucose (UA) Urine Ketones Urine Occult Blood Urine Nitrite Urine Bilirubin Urine Urobilinogen Ur Leukocyte Esterase Urine RBC Urine WBC Ur Squamous Epith Cells Urine Bacteria Urine Mucus 08/25/21 14:04 WBC RBC Hgb Hct MCV MCH MCHC RDW Std Deviation RDW Coeff of [place] Plt Count MPV Immature Gran % (Auto) Neut % (Auto) Lymph % (Auto) [place] % (Auto) Eos % (Auto) Baso % (Auto) Absolute Neuts (auto) Absolute Lymphs (auto) Nucleated RBC % Sodium Potassium Chloride Carbon Dioxide Anion Gap BUN Creatinine Estim Creat Clear Calc Est GFR (MDRD) Af Amer Est GFR (MDRD) Non-Af BUN/Creatinine Ratio Glucose Calcium Total Bilirubin AST ALT Alkaline Phosphatase Total Protein Albumin Globulin Albumin/Globulin Ratio Lipase Serum , Qual Urine Color Yellow Urine Clarity Sl. Cloudy Urine pH 6.0 Ur Specific [place] 1.020 Urine Protein 15 H Urine Glucose (UA) Normal Urine Ketones Negative Urine Occult Blood 10 H Urine Nitrite Positive H Urine Bilirubin Negative Urine Urobilinogen Normal Ur Leukocyte Esterase 500 H Urine RBC 0 SEEN Urine WBC 0-5 SEEN Ur Squamous Epith Cells 25-50 SEEN Urine Bacteria 1+ Urine Mucus 0 SEEN Radiography Diagnostic Testing: Clinical Impression(s) from Imaging Studies Abdomen/Pelvis CT 08/25/21 13:10 IMPRESSION: 1. Mild fluid seen within the endocervical canal most likely related to the patient''s cycle. Otherwise grossly unremarkable uterus and adnexa. 2. No free air or free fluid or bowel dilatation or evidence of obstruction. 3. Moderate stool retention seen throughout the colon. Electronically Signed: Theodore Burroughs MD at 14:43 EDT Reading Location ID and State: [address] [place] [address] , Service support , <Dr. Marva Gallegos, DO - Last Filed: 08/25/21 15:42> [facility] Narrative Medical decision making narrative: I have personally performed a face to face assessment of the patient and have reviewed the GREY Note. I performed a substantive portion of the visit including all aspects of the following. My weaver findings include: History is [patient presents to the emergency department complaint of abdominal pain x2 weeks. Patient states that the pain is continuous now and it was initially more intermittent. She describes it as left-sided. He describes nausea and she is been vomiting about once a day. She denies any fevers. She denies any blood in her stool or black tarry stool. She denies urinary symptoms. Patient states that she finished her menstrual period today and has been bleeding for about a week. Patient also states that she think she is constipated and has not had a bowel movement in about 5 days. Patient is G1, P1.] Exam is [HEENT-PERRLA, EOMI. Cranial nerves II through XII grossly intact. TMs clear. Mucous membranes moist. No adenopathy. Cardiovascular-regular rate and rhythm without murmur or ectopy Lungs-clear to auscultation, chest wall stable without crepitus or subcu emphysema Abdomen-normoactive bowel sounds, soft. Patient has tenderness palpation over the left lower quadrant as well as the left upper quadrant with guarding. No rebound or rigidity noted. Extremities-intact ?4, normal range of motion, normal pulses, atraumatic] Medical Decison Making [lab work up was unremarkable. Patient had some signs of UTI. CT scan of the abdomen pelvis was unremarkable. Patient did have some moderate constipation on CT. At this point she will be discharged home with prescription for magnesium citrate. Patient also will be treated with antibiotics for suspected UTI. Patient advised to follow-up with primary care physician 3 to 5 days. Patient to return if worsening pain, fever, vomiting, or condition worsen anyway.] Other additions or changes: [Non patient seen with physician commercial escrow assistant and physical exam and history obtained by myself. ] Lab Data Labs: Laboratory Results - last 24 hr 08/25/21 08/25/21 08/25/21 13:20 13:20 13:20 WBC 4.8 RBC 3.94 L Hgb 11.4 L Hct 34.2 L MCV 86.8 MCH 28.9 MCHC 33.3 RDW Std Deviation 41.8 RDW Coeff of Nakia 13.3 Plt Count 253 MPV 10.5 Immature Gran % (Auto) 0.200 Neut % (Auto) 40.3 L Lymph % (Auto) 49.0 H [place] % (Auto) 7.2 Eos % (Auto) 2.9 Baso % (Auto) 0.4 Absolute Neuts (auto) 2.0 Absolute Lymphs (auto) 2.37 Nucleated RBC % 0 Sodium 140 Potassium 3.5 Chloride 110 H Carbon Dioxide 25.0 Anion Gap 5 BUN 8 Creatinine 0.65 Estim Creat Clear Calc 116.06 Est GFR (MDRD) Af Amer 147 Est GFR (MDRD) Non-Af 122 BUN/Creatinine Ratio 12.3 Glucose 99 Calcium 8.8 Total Bilirubin 0.20 AST 11 L ALT 14 Alkaline Phosphatase 66 Total Protein 7.3 Albumin 3.7 Globulin 3.6 Albumin/Globulin Ratio 1.0 Lipase 125 Serum , Qual NEGATIVE Urine Color Urine Clarity Urine pH Ur Specific [place] Urine Protein Urine Glucose (UA) Urine Ketones Urine Occult Blood Urine Nitrite Urine Bilirubin Urine Urobilinogen Ur Leukocyte Esterase Urine RBC Urine WBC Ur Squamous Epith Cells Urine Bacteria Urine Mucus 08/25/21 14:04 WBC RBC Hgb Hct MCV MCH MCHC RDW Std Deviation RDW Coeff of Nakia Plt Count MPV Immature Gran % (Auto) Neut % (Auto) Lymph % (Auto) [place] % (Auto) Eos % (Auto) Baso % (Auto) Absolute Neuts (auto) Absolute Lymphs (auto) Nucleated RBC % Sodium Potassium Chloride Carbon Dioxide Anion Gap BUN Creatinine Estim Creat Clear Calc Est GFR (MDRD) Af Amer Est GFR (MDRD) Non-Af BUN/Creatinine Ratio Glucose Calcium Total Bilirubin AST ALT Alkaline Phosphatase Total Protein Albumin Globulin Albumin/Globulin Ratio Lipase Serum , Qual Urine Color Yellow Urine Clarity Sl. Cloudy Urine pH 6.0 Ur Specific [place] 1.020 Urine Protein 15 H Urine Glucose (UA) Normal Urine Ketones Negative Urine Occult Blood 10 H Urine Nitrite Positive H Urine Bilirubin Negative Urine Urobilinogen Normal Ur Leukocyte Esterase 500 H Urine RBC 0 SEEN Urine WBC 0-5 SEEN Ur Squamous Epith Cells 25-50 SEEN Urine Bacteria 1+ Urine Mucus 0 SEEN Radiography Diagnostic Testing: Clinical Impression(s) from Imaging Studies Abdomen/Pelvis CT 08/25/21 13:10 IMPRESSION: 1. Mild fluid seen within the endocervical canal most likely related to the patient''s cycle. Otherwise grossly unremarkable uterus and adnexa. 2. No free air or free fluid or bowel dilatation or evidence of obstruction. 3. Moderate stool retention seen throughout the colon. Electronically Signed: Theodore Burroughs MD at 14:43 EDT Reading Location ID and State: [facility] / [place] , Service support , Discharge Plan Triage Chief Complaint: Abd Pain ED Midlevel Provider: Ras Shirley ED Provider: Marva Gallegos Dx/Rx/DC Orders Clinical Impression: Constipation, Urinary tract infection Instructions: ED Constipation (Adult), ED CYSTITIS Female Adult Prescriptions: New cephalexin 500 mg capsule 500 mg PO Q12 Qty: 14 RF: 0 magnesium citrate Solution 150 ml PO DAILY Qty: 296 RF: 0 Primary Care Provider: Care Physician,No Primary Referrals: Care Physician,No Primary [Primary Care Provider] - Activity Restrictions/Additional Instructions: Please take your full course of antibiotics for urinary tract infection. Please take magnesium citrate, take half the bottle, wait 4 hours if no relief take the rest of the bottle. Print Language: Tunisian Disposition Disposition: Home, Self Care Discharge Date/Time: 08/25/21 15:16
[2021-08-25] MEDS: 0.9% Normal Saline 1,000 ML 1000 ML IV (13:23)
[2021-08-25] MEDS: Ketorolac 15 MG/ML Vial IV (13:24)
[2021-08-25] MEDS: Ondansetron 4 MG/2 ML Vial IV (13:24)
[2021-08-25 13:32] LABS: Absolute Lymphocyte Count 2.37 X10^3/uL (0.83-4.51); Basophil# 0.02 X10^3/uL; Basophil% 0.4 % (0-1); Eosinophil# 0.14 X10^3/uL; Eosinophils% 2.9 % (0-5); Hematocrit 34.2 % (37-47); Hemoglobin 11.4 g/dL (12.0-15.0); Lymphocyte # 2.37 X10^3/ul (0.83-4.51); Mean Corp Hgb Conc 33.3 g/dL (32-36); Mean Corpuscular Hgb 28.9 pg (27.0-32.0); Mean Corpuscular Volume 86.8 fL (81-99); Mean Platelet Vol. 10.5 fl (6.2-12.0); Monocyte# 0.35 X10^3/uL; Monocyte% 7.2 % (0-10); NRBC Flagged by Analyzer 0 % (0-5); Neutrophil # 1.95 X10^3/uL (2.7-7.7); Neutrophil % 40.3 % (47-70); Platelet Count 253 K/mm3 (150-450); RBC Distribution Width CV 13.3 % (11.6-14.6); RBC Distribution Width SD 41.8 fl (35.1-43.9); Red Blood Count 3.94 M/mm3 (4.2-5.4); White Blood Count 4.8 K/mm3 (4.4-11.0)
[2021-08-25 13:51] LABS: Internal QC Validated? YES +Cl - CLEAR BKGD; Pregnancy, Serum, hCG Quali. NEGATIVE Negative
[2021-08-25 13:56] LABS: AST(SGOT) 11 U/L (15-37); Alanine Aminotransfer ALT/SGPT 14 U/L (13-56); Albumin, Serum 3.7 g/dL (3.2-5.0); Alkaline Phosphatase 66 U/L (45-117); Anion Gap 5 (5-15); BUN 8 mg/dL (7-18); BUN/Creat Ratio 12.3 RATIO (10-20); Calcium,Total 8.8 mg/dL (8.5-10.1); Chloride 110 mmol/L (98-107); Creatinine, Serum 0.65 mg/dL (0.55-1.02); EST Glomerular Filtration Rate 122 mL/min (>60); Est Glom Filt Rate - Afr Amer 147 mL/min (>60); Estimated Creatinine Clearance 116.06 ml/min; Globulin 3.6 g/dL (2.2-4.2); Glucose 99 mg/dL (74-106); Lipase 125 U/L (73-393); Potassium 3.5 mmol/L (3.5-5.1); Protein, Total 7.3 g/dL (6.4-8.2); Sodium Level 140 mmol/L (136-145)
[2021-08-25 14:10] LABS: Mucous, Urine 0 SEEN /hpf (<or=2+); Red Blood Cells-Urine 0 SEEN /hpf (0-5)
[2021-08-25 14:11] LABS: Color, Urine Yellow (Yellow); Glucose, Dipstick Normal (Normal); Ketone-Dipstick Negative (Negative); Leukocyte Esterase-Dipstick 500 /ul (Negative); Nitrite-Dipstick Positive (Negative); Occult Blood-Urine 10 /ul (Negative); Protein-Dipstick 15 mg/dl (Negative); Urine Bilirubin Dipstick Negative (Negative); Urine Clarity Sl. Cloudy (Clear); Urine Urobilinogen Normal (Normal)
[2021-08-25 14:16] LABS: Bacteria 1+ /hpf (None Seen); Squamous Epithelial Cells - UA 25-50 SEEN /hpf (5-10); White Blood Cells 0-5 SEEN /hpf (0-5)
[2021-08-25] MEDS: Cephalexin 250 MG Capsule 500 MG PO (15:11)
[2021-08-25 15:15] VITALS: BP 118/65; PULSE 69; RESP 15; O2SAT 99
== END 2021-08-25 15:16 | disposition home or self-care (01) ==
PROVIDERS: Nurse Practitioner; Emergency Provider Emergency Medicine; Visit Provider Emergency Medicine
DX: K59.00 Constipation, unspecified (principal); N39.0 Urinary tract infection, site not specified; R11.2 Nausea with vomiting, unspecified; R10.32 Left lower quadrant pain
CPT/HCPCS: 74177; 80053; 81001; 83690; 84703; 85025; 87077; 87086; 87088; 87186; 96361; 96374; 96375; 99284; J7030; Q9967; A4216; J2405

== ENCOUNTER 2021-12-12 02:08 | Emergency (ER) | payer MEDICAID, SELFPAY ==
[2021-12-12 02:10] VITALS: BP 106/73; PULSE 98; RESP 16; TEMP 36.6; O2SAT 100; BMI 18.7
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
[2021-12-12] MEDS: Naproxen 500 MG Tablet PO (03:02)
== END 2021-12-12 03:17 | disposition home or self-care (01) ==
LOC: ED 02:41
PROVIDERS: Emergency Provider Emergency Medicine; Visit Provider Emergency Medicine
DX: S46.912A Strain of unspecified muscle, fascia and tendon at shoulder and upper arm level, left arm, initial encounter (principal); S60.222A Contusion of left hand, initial encounter; S50.12XA Contusion of left forearm, initial encounter; S40.022A Contusion of left upper arm, initial encounter; X58.XXXA Exposure to other specified factors, initial encounter
CPT/HCPCS: 99282

== ENCOUNTER 2022-09-24 22:06 | Emergency (ER) | payer MEDICAID, SELFPAY ==
[2022-09-24 22:07] VITALS: BP 112/75; PULSE 94; RESP 16; TEMP 36.6; O2SAT 99; BMI 20.2
--- NOTE | 2022-09-24 23:08 | EDS_ITS ---
HPI History of Present Illness Chief Complaint: Dental Informant: patient Onset/Context/Timing Onset: Days Context: Gradual Onset Current Severity: Mild Maximum Severity: Moderate Narrative Narrative: Patient presents secondary to left lower dental pain. She states the past couple days has had increased pain and noted a lump under her jaw. She is concerned she has a dental abscess. She has reported some chills and a slight sour taste in her mouth. [facility] Medical History Anxiety Home Medications cyclobenzaprine 10 mg tablet 10 mg PO BID PRN muscle spasm #10 tabs 12/12/21 [Rx Last Taken Unknown] naproxen 500 mg tablet 500 mg PO BID #14 tabs 12/12/21 [Rx Last Taken Unknown] penicillin V potassium 250 mg tablet 500 mg PO 4X/DAY #40 tabs 09/24/22 [Rx Last Taken Unknown] Allergy/AdvReac Type Severity Reaction Status Date / Time No Known Allergies Allergy Verified 09/24/22 22:09 Social History Smoking Status: Never smoker ROS ROS ED Constitutional Constitutional ED: Denies chills or fever(s) Eyes Eyes: Denies change in vision or discharge from eye(s) ENT ENT ED: Reports other Details: Dental pain ; Denies discharge from eye(s), rhinorrhea or sore throat Cardiovascular Cardiovascular: Denies chest pain or palpitations Respiratory/Chest Respiratory/Chest: Denies cough or dyspnea Gastrointestinal Gastrointestinal: Denies abdominal pain, nausea or vomiting Musculoskeletal Musculoskeletal: Denies back pain or extremity pain Integumentary Denies Abrasions or rash Neurologic Neurologic: Denies headache(s) or weakness Allergic/Immunologic Allergic/Immunologic ED: Denies lip swelling or urticaria EXAM Physical Exam Const Vital Signs: 09/24/22 22:07 Temperature 97.9 F Temperature Source Temporal Pulse Rate 94 Respiratory Rate 16 Blood Pressure 112/75 Blood Pressure Mean 87 Pulse Ox 99 Oxygen Delivery Method Room Air Positive well nourished and well developed General Appearance ED: well developed HEENT Reports normocephalic and head/scalp atraumatic HEENT Narrative: No facial edema or erythema. Intraoral examination reveals multiple dental caries. The left mandibular first molar is eroded down to the gumline with mild surrounding gum edema. There is no trismus. There is no submandibular fullness or sign of Nasim's angina. She is speaking with a strong voice and tolerating secretions well. Eyes PERRL and EOMs intact bilaterally Neck supple Chest Wall inspection of chest normal and palpation of chest normal Resp normal respiratory effort and clear to auscultation bilaterally Cardio regular rate and regular rhythm GI normal to inspection, nondistended, normoactive bowel sounds Palpation: soft Extremity normal to inspection Neuro oriented x3 and no sensory deficits noted Sensorium / Orientation: alert Motor Exam: strength 5/5 throughout Psych mental status grossly normal Skin no rashes or lesions noted MDM MDM MDM Narrative Medical decision making narrative: Patient was treated with Pen-Vee K, first dose given here. She is given a dental referral sheet. Patient reports that she is approximately 8 weeks . In light of this I advised her she can take Tylenol for pain. Return instructions given. Discharge Plan Triage Chief Complaint: Dental ED Provider: Monae Byers Dx/Rx/DC Orders Clinical Impression: Dental infection Instructions: ED Dental Abscess Prescriptions: New penicillin V potassium 250 mg tablet 500 mg PO 4X/DAY Qty: 40 0RF No Action cyclobenzaprine 10 mg tablet 10 mg PO BID PRN (Reason: muscle spasm) Qty: 10 0RF naproxen 500 MG tablet 500 mg PO BID Qty: 14 0RF Primary Care Provider: Care Physician,No Primary Referrals: Care Physician,No Primary [Primary Care Provider] - Activity Restrictions/Additional Instructions: Dental referral list provided. Disposition Disposition: Home, Self Care Discharge Date/Time: 09/24/22 23:35
[2022-09-24] MEDS: Penicillin Vk 250 MG Tablet 500 MG PO (23:34)
== END 2022-09-24 23:35 | disposition home or self-care (01) ==
LOC: ED 23:20
PROVIDERS: Emergency Provider Emergency Medicine; Visit Provider Emergency Medicine
DX: O99.611 Diseases of the digestive system complicating pregnancy, first trimester (principal); K04.7 Periapical abscess without sinus; K02.9 Dental caries, unspecified; K08.89 Other specified disorders of teeth and supporting structures; Z3A.08 8 weeks gestation of pregnancy
CPT/HCPCS: 99283

== ENCOUNTER 2022-10-31 20:55 | Emergency (ER) | payer MEDICAID, SELFPAY ==
[2022-10-31 20:56] VITALS: BP 109/72; PULSE 103; RESP 16; TEMP 36.1; O2SAT 99
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
== END 2022-10-31 22:22 | disposition home or self-care (01) ==
PROVIDERS: Emergency Provider Emergency Medicine; Visit Provider Emergency Medicine
DX: O9A.211 Injury, poisoning and certain other consequences of external causes complicating pregnancy, first trimester (principal); S00.83XA Contusion of other part of head, initial encounter; S00.33XA Contusion of nose, initial encounter; S30.1XXA Contusion of abdominal wall, initial encounter; S20.212A Contusion of left front wall of thorax, initial encounter; Z3A.00 Weeks of gestation of pregnancy not specified
CPT/HCPCS: 70160; 71046; 99282

== ENCOUNTER 2023-04-25 21:00 | Outpatient (CLI) | payer MEDICAID, SELFPAY ==
--- OUTSIDE RECORDS SUMMARY | 2023-04-25 21:15 | XMS RPT_ITS ---
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 [id number] [place] [address] 03/24/2023 Primary Insurance:[employer] [place] Number: [id number] Date:9221-33-55Ggtq Name:Estella STEINB: [id number] [place], [place] [address] [place] [address] 03/20/2023 Primary Insurance:[employer] [place] Number: [id number] Date:2317-75-95Yudq Name:Estella WILLARDB: [id number] [place], [place] [address] [place] [address] 03/13/2023 Primary Insurance:[employer] [place]: [id number] Date:7874-42-78Fapi Name:Estella WILLARDB: [id number] [place], [place] [address] [place] [address] 03/05/2023 Primary Insurance:[employer] [place] Number: [id number] Date:1239-99-64Zwtj Name:Estella WILLARDDOB: [birth year] [place], [place] [address] [place] [address] 02/11/2023 Primary Insurance:[employer] [place] Number: [id number] Date:5998-06-39Nolw Name:Estella WILLARDB: [id number] [place], [place] [address] [place] [address] 02/11/2023 Primary Insurance:[employer] [place]: [id number] Date:2214-31-66Pouv Name:Estella STEINB: [id number] [place], [place] [address] [place] [address] 2023 Primary Insurance:[employer] [place] Number: [id number] Date:8440-34-58Jlkx Name:Estella STEINB: [id number] [place], [place] [address] [place] [address] 01/14/2023 Primary Insurance:[employer] [place] Number: [id number] Date:8995-26-65Hdda Name:Estella STEINB: [id number] [place], [place] [address] [place] [address] 12/25/2022 Primary Insurance:[employer] [place] Number: [id number] Date:8726-51-61Ycgf Name:Estella WILLARDB: [id number] [place], [place] [address] [place] [address] 12/25/2022 Primary Insurance:[employer] [place] Number: [id number] Date:7749-17-19Dmzb Name:Estella Patrick EMILB: [id number] [place], [place] [address] [place] [address] 12/09/2022 Primary Insurance:[employer] [place] Number: [id number] Date:4225-54-02Xqoq Name:Estella Patrick EMILB: [id number] [place], [place] [address] [place] [address] 12/09/2022 Primary Insurance:[employer] [place] Number: [id number] Date:5652-64-96Gzxn Name:Estella Patrick EMILB: [id number] [place] [address] [facility] 10/23/2022 Primary Insurance:[employer] [place] Number: [id number] Date:2855-46-23Edzk Name:Estella Patrick ABRIL: [id number] [place] [address] [facility] 10/23/2022 Primary Insurance:[employer] [place] Number: [id number] Date:9029-89-30Kilr Name:Estella SEWELLLOUIE M ABRIL: [id number] [place] [address] [facility] 06/30/2022 Primary Insurance:[employer] [place] Number: [id number] Date:8003-85-52Sutc Name:Estella LOUIE SAMUELS: [id number] [place] [address] [facility]
[2023-04-25 21:25] VITALS: BP 108/71; PULSE 109; PULSE 112; O2SAT 97
[2023-04-25 21:26] VITALS: BMI 29.1
[2023-04-25 21:49] LABS: Mucous, Urine 0 SEEN /hpf (<or=2+); Red Blood Cells-Urine 0 SEEN /hpf (0-5)
[2023-04-25 21:51] LABS: Color, Urine Yellow (Yellow); Glucose, Dipstick Normal (Normal); Ketone-Dipstick Negative (Negative); Leukocyte Esterase-Dipstick 500 /ul (Negative); Nitrite-Dipstick Negative (Negative); Occult Blood-Urine Negative /ul (Negative); Protein-Dipstick 30 mg/dl (Negative); Urine Bilirubin Dipstick Negative (Negative); Urine Clarity Sl. Cloudy (Clear); Urine Urobilinogen 4 mg/dl (Normal)
[2023-04-25 21:57] LABS: Squamous Epithelial Cells - UA 5-10 SEEN /hpf (5-10); White Blood Cells 10-25 SEEN /hpf (0-5)
[2023-04-25 21:58] LABS: Bacteria 1+ /hpf (None Seen)
[2023-04-25 22:00] LABS: ROM Internal Control Test YES-OK TO RESULT pt. (Internal QC); ROM Patient Test Negative (Negative); Record Kit Lot#, ROM+ K1409
--- NOTE | 2023-05-27 18:29 | PCM.PN.CNM ---
Subjective Subjective presents for vaginal discharge and possible labor. Objective Data Objective Data Vital Signs: Vital Signs Pulse BP Pulse Ox 109 H 108/71 97 04/25/23 21:25 04/25/23 21:25 04/25/23 21:25 Weight: 186 lb 2 oz Body Mass Index (BMI) 29.1 Lab / Micro Data Micro: Microbiology 04/25/23 22:22 Urine, Clean Catch Urine Culture - Final Mixed Gram Positive Organisms Streptococcus agalactiae (B) NST FHR Rate Baby B Baseline: 125 Variability:: Moderate Accelerations:: 15 x 15 Decelerations:: None Uterine Activity:: Irregular, mild Assessment & Plan (1) False labor: PLAN: Plan 1) ROM plus negative 2) No signs of labor 3) Reactive NST 4) D/C home
== END 2023-04-25 22:28 | disposition home or self-care (01) ==
LOC: WPOUT 21:09 → WP 21:10
PROVIDERS: Visit Provider Advanced Practice Midwife
DX: O47.9 False labor, unspecified (principal); O99.891 Other specified diseases and conditions complicating pregnancy; N89.8 Other specified noninflammatory disorders of vagina; Z3A.00 Weeks of gestation of pregnancy not specified
CPT/HCPCS: 59025; 59050; 81001; 84112; 87077; 87086; 87088

== ENCOUNTER 2023-05-01 03:17 | Outpatient (CLI) | payer MEDICAID, SELFPAY ==
[2023-05-01 03:37] VITALS: PULSE 98; O2SAT 97
[2023-05-01 03:42] VITALS: PULSE 94; TEMP 36.3; O2SAT 96; O2SAT 97
[2023-05-01 03:43] VITALS: BP 108/68; PULSE 99
[2023-05-01 04:07] VITALS: BMI 29.1
[2023-05-01 04:37] LABS: Color, Urine Yellow (Yellow); Glucose, Dipstick Normal (Normal); Ketone-Dipstick 5 mg/dl (Negative); Leukocyte Esterase-Dipstick 500 /ul (Negative); Nitrite-Dipstick Negative (Negative); Occult Blood-Urine 50 /ul (Negative); Protein-Dipstick 30 mg/dl (Negative); Urine Bilirubin Dipstick Negative (Negative); Urine Clarity Sl. Cloudy (Clear); Urine Urobilinogen 4 mg/dl (Normal)
--- NOTE | 2023-05-07 17:40 | OB.TRI.NOTE ---
HPI - General General Date of Service: 05/01/23 HPI Narrative LOUIE WILLARD, is a 23 F who presents Maternal Data Information Final JOSE DE JESUS: 05/06/23 Gestational age: 39&2 PFSH PFSH Medical History (Updated 05/07/23 @ 17:[address] Jesse Rosado MD) Anemia Anxiety Depression Gestational diabetes depression PTSD (post-traumatic stress disorder) Substance abuse Suicide attempt Home Medications famotidine 20 mg tablet (Pepcid) 20 mg PO DAILY heartburn 04/25/23 [History Last Taken 04/24/23] ferrous sulfate 325 mg (65 mg iron) tablet 325 mg PO DAILY anemia 04/25/23 [History Last Taken 04/24/23] lamotrigine 100 mg tablet (Lamictal) 100 mg PO DAILY mood 04/25/23 [History Last Taken 04/30/23 22:00] vit no.95-ferrous fumarate 28 mg-folic acid 800 mcg tablet () 1 tab PO DAILY 04/25/23 [History Last Taken 04/24/23] Allergy/AdvReac Type Severity Reaction Status Date / Time No Known Allergies Allergy Verified 05/02/23 19:47 Social History household members: children Smoking Status: Former smoker substance use type: does not use History Elective abortions Hx Para 1 Spontaneous abortions Hx # Term Pregnancies Ectopic pregnancies Hx # Pregnancies Multiple births # of living children NST FHR Rate Baby A Baseline: 125 Variability:: Moderate Accelerations:: 15 x 15 Decelerations:: Variable Uterine Activity:: irregular Assessment & Plan (1) False labor: PLAN: Plan Reactive NST
== END 2023-05-01 05:15 | disposition home or self-care (01) ==
LOC: WPOUT 03:25 → WP 03:26
PROVIDERS: Referring Provider Obstetrics & Gynecology; Visit Provider Obstetrics & Gynecology
DX: O42.92 Full-term premature rupture of membranes, unspecified as to length of time between rupture and onset of labor (principal); Z87.891 Personal history of nicotine dependence; O99.013 Anemia complicating pregnancy, third trimester; O26.893 Other specified pregnancy related conditions, third trimester; Z3A.39 39 weeks gestation of pregnancy
CPT/HCPCS: 59025; 59050 ×2; 81002

== ENCOUNTER 2023-05-02 15:53 | Inpatient (IN) | payer MEDICAID, SELFPAY ==
[2023-05-02] VITALS (27 sets, daily range): BP systolic 83–116; BP diastolic 51–72; PULSE 73–99; TEMP 36.6–37.3; O2SAT 92–98; BMI 28.8
[2023-05-02 16:01] LABS: ROM Internal Control Test YES-OK TO RESULT pt. (Internal QC); Record Kit Lot#, ROM+ K1374
[2023-05-02 16:02] LABS: ROM Patient Test POSITIVE (Negative)
[2023-05-02] MEDS: Penicillin G Pot 5,000,000 UNITS in 0.9% Normal Saline (100mL MB+) 100 ML 150 UNITS IV (16:15)
[2023-05-02] MEDS: Lactated Ringers 1,000 ML 50 ML IV (16:15)
[2023-05-02] MEDS: LACTATED RINGERS 500 ML 999 ML IV ×2 (16:20→20:45)
[2023-05-02 16:29] LABS: Absolute Lymphocyte Count 1.59 X10^3/uL (0.83-4.51); Absolute Neutrophil Count 8.2 X10^3/uL (2.0-7.7); Basophil# 0.03 X10^3/uL; Basophil% 0.3 % (0-1); Eosinophil# 0.04 X10^3/uL; Eosinophils% 0.4 % (0-5); Hematocrit 36.3 % (37-47); Hemoglobin 12.1 g/dL (12.0-15.0); Lymphocyte # 1.59 X10^3/ul (0.83-4.51); Lymphocyte % 15.3 % (19-41); Mean Corp Hgb Conc 33.3 g/dL (32-36); Mean Corpuscular Hgb 29.4 pg (27.0-32.0); Mean Corpuscular Volume 88.3 fL (81-99); Mean Platelet Vol. 10.4 fl (6.2-12.0); Monocyte# 0.51 X10^3/uL; Monocyte% 4.9 % (0-10); NRBC Flagged by Analyzer 0 % (0-5); Neutrophil # 8.19 X10^3/uL (2.7-7.7); Neutrophil % 78.6 % (47-70); Platelet Count 243 K/mm3 (150-450); RBC Distribution Width SD 41.9 fl (35.1-43.9); Red Blood Count 4.11 M/mm3 (4.2-5.4); White Blood Count 10.4 K/mm3 (4.4-11.0)
[2023-05-02 17:02] LABS: Syphilis Antibodies Non-reactive
[2023-05-02] MEDS: fentaNYL-bupivacaine (epidural) 100 ML BAG EPIDURAL ×2 (17:26→22:52)
[2023-05-02] MEDS: Mag Hydrox/Al Hydrox/Simeth 30 ML UDC PO (17:44)
[2023-05-02] MEDS: Oxytocin 15 Units/NS 250ml 15 UNITS/250 ML IV.SOLN 2 UNITS IV (18:02)
--- NOTE | 2023-05-02 19:50 | PCM.HP.OB ---
HPI - General General Date of Admission: 05/02/23 HPI Narrative LOUIE WILLARD, is a 23 F @ 39.3 weeks who presents c/o SROM and contractions on admission patient was found to be ruptured and 5-6cm irregular contractions. PFSH PFSH Medical History (Updated 05/02/23 @ 19:[address] Karla House MD) Anemia Anxiety Depression Gestational diabetes depression PTSD (post-traumatic stress disorder) Substance abuse Suicide attempt Home Medications famotidine 20 mg tablet (Pepcid) 20 mg PO DAILY heartburn 04/25/23 [History Last Taken 04/24/23] ferrous sulfate 325 mg (65 mg iron) tablet 325 mg PO DAILY anemia 04/25/23 [History Last Taken 04/24/23] lamotrigine 100 mg tablet (Lamictal) 100 mg PO DAILY mood 04/25/23 [History Last Taken 04/30/23 22:00] vit no.95-ferrous fumarate 28 mg-folic acid 800 mcg tablet () 1 tab PO DAILY 04/25/23 [History Last Taken 04/24/23] Allergy/AdvReac Type Severity Reaction Status Date / Time No Known Allergies Allergy Verified 05/02/23 19:47 Surgical History no surgical history Social History household members: children Smoking Status: Former smoker substance use type: does not use History Elective abortions Hx Para 1 Spontaneous abortions Hx # Term Pregnancies Ectopic pregnancies Hx # Pregnancies Multiple births # of living children NST FHR Rate Baby A Baseline: 140 Variability:: Moderate Accelerations:: 15 x 15 Decelerations:: None NST Reactive:: Yes FHR Category:: Category I Uterine Activity:: q5-10 min Vital Signs Vital Signs Vital Signs: 05/02/23 16:25 05/02/23 16:25 05/02/23 16:25 Temperature Temperature Source Temporal Pulse Rate 94 Blood Pressure 116/72 BP Systolic 116 BP Diastolic 72 Pulse Ox 05/02/23 16:25 05/02/23 16:25 05/02/23 16:25 Temperature 99.1 F Temperature Source Pulse Rate 97 Blood Pressure BP Systolic BP Diastolic Pulse Ox 97 05/02/23 17:12 05/02/23 17:12 05/02/23 17:17 Temperature Temperature Source Pulse Rate 93 87 Blood Pressure BP Systolic BP Diastolic Pulse Ox 97 05/02/23 17:17 05/02/23 17:22 05/02/23 17:22 Temperature Temperature Source Pulse Rate 96 Blood Pressure 111/65 BP Systolic 111 BP Diastolic 65 Pulse Ox 97 05/02/23 17:22 05/02/23 17:28 05/02/23 17:28 Temperature Temperature Source Pulse Rate 99 Blood Pressure BP Systolic BP Diastolic Pulse Ox 95 96 05/02/23 17:32 05/02/23 17:32 05/02/23 17:32 Temperature Temperature Source Pulse Rate 89 Blood Pressure 95/57 L BP Systolic 95 BP Diastolic 57 Pulse Ox 92 05/02/23 17:33 05/02/23 17:33 05/02/23 17:36 Temperature Temperature Source Temporal Pulse Rate 93 Blood Pressure BP Systolic BP Diastolic Pulse Ox 97 05/02/23 17:36 05/02/23 17:39 05/02/23 17:39 Temperature 98.5 F Temperature Source Pulse Rate 95 Blood Pressure 90/58 L BP Systolic 90 BP Diastolic 58 Pulse Ox 05/02/23 17:38 05/02/23 17:44 05/02/23 17:44 Temperature Temperature Source Pulse Rate 95 Blood Pressure 100/56 L BP Systolic 100 BP Diastolic 56 Pulse Ox 94 05/02/23 17:43 05/02/23 17:47 05/02/23 17:47 Temperature Temperature Source Pulse Rate 97 Blood Pressure 104/58 L BP Systolic 104 BP Diastolic 58 Pulse Ox 97 05/02/23 17:48 05/02/23 17:48 05/02/23 17:52 Temperature Temperature Source Pulse Rate 95 Blood Pressure 94/51 L BP Systolic 94 BP Diastolic 51 Pulse Ox 97 05/02/23 17:52 05/02/23 18:24 05/02/23 18:24 Temperature Temperature Source Pulse Rate 92 93 Blood Pressure 97/53 L BP Systolic 97 BP Diastolic 53 Pulse Ox 05/02/23 18:33 05/02/23 18:33 05/02/23 18:34 Temperature Temperature Source Temporal Pulse Rate 84 Blood Pressure BP Systolic BP Diastolic Pulse Ox 96 05/02/23 18:34 05/02/23 18:34 05/02/23 18:34 Temperature 98.4 F Temperature Source Pulse Rate 80 Blood Pressure BP Systolic BP Diastolic Pulse Ox 98 05/02/23 19:30 05/02/23 19:30 05/02/23 19:31 Temperature Temperature Source Pulse Rate 75 85 Blood Pressure 107/66 BP Systolic 107 BP Diastolic 66 Pulse Ox 05/02/23 19:31 05/02/23 19:30 05/02/23 19:30 Temperature 98.4 F Temperature Source Temporal Pulse Rate Blood Pressure BP Systolic BP Diastolic Pulse Ox 97 Weight Weight: 83.518 kg Body Mass Index (BMI) 28.8 Physical Exam Const alert and oriented x3 General Appearance: cooperative HEENT normocephalic GI GI Narrative: Gravid, non tender to palpation. OB / External & Speculum: external exam normal Extremity normal to inspection Skin no rashes or lesions noted Neuro oriented x3 and CN's II-XII intact bilaterally Psych Appearance: grossly normal Labs Labs Labs: Blood Type O NEGATIVE Antibody Screen NEGATIVE Hct 36.3 % (37-47) L Hgb 12.1 g/dL (12.0-15.0) Syphilis Total Ab Non-reactive Rhogam given: Yes Assessment & Plan (1) Spontaneous rupture of membranes: (2) 39 weeks gestation of : (3) Rh negative state in antepartum period: (4) History of drug abuse: (5) Anemia affecting in third trimester: PLAN: Plan Admit to L&D Montior FHR/TOCO Epidural if requested for pain Monitor VS Anticipate pitocin for labor augmentation GBS negative
[2023-05-02] MEDS: Penicillin G 3,000,000 Units 50 ML 100 UNITS IV (20:11)
[2023-05-02 20:36] LABS: Amphetamine Urine VISTA NEGATIVE (<1000 ng/mL); Barbiturate Urine VISTA NEGATIVE (< 200 ng/mL); Benzodiazepine Urine VISTA NEGATIVE (< 200 ng/mL); Cocaine Urine VISTA NEGATIVE (< 300 ng/mL); Ecstacy Urine VISTA NEGATIVE (< 500 ng/mL); Methadone Urine VISTA NEGATIVE (< 300 ng/mL); PCP Urine VISTA NEGATIVE (< 25 ng/mL); THC Urine VISTA NEGATIVE (< 50 ng/mL); Vista UDS pH Range 5
--- NOTE | 2023-05-02 20:39 | PCM.PN.BLA ---
Progress Note pt seen at bedside, VE performed- /0 , resting comfortably with epidural in place.
[2023-05-02] MEDS: Lactated Ringers 1,000 ML 200 ML IV (22:10)
--- NOTE | 2023-05-02 23:49 | EX.PCM.OBRPT ---
Vaginal Delivery Operative Information Date of Procedure: 05/02/23 Pre-Operative Diagnosis: 39 weeks, SROM, Rh negative, GBS+ ,Anemia, H/o Drug abuse Post-Operative Diagnosis: Same, live male infant Surgery / Procedure Performed: Spontaneous Vaginal Delivery Type of Anesthesia: Epidural Estimated Blood Loss: 50 Time of Delivery: 23:36 Findings Description of Procedure: Patient progressed to fully dilated. Good maternal pushing efforts delivered the infant's head followed by the anterior shoulder and the rest the infant's body delivered without complication. was placed on the mother's chest for immediate skin to skin. Delayed cord clamping was performed. Infant was vigorous at time of delivery. Cord was then clamped and cut cord blood was obtained. Pitocin was started. Placenta was then delivered without complication and intact. Vagina and perineum were inspected and no lacerations were appreciated. Presentation: Vertex Amniotic Membrane Rupture Type: Spontaneous Amniotic Fluid Description: Clear Placental Delivery Description: Spontaneous Placenta Disposition: [facility] Specimen(s) Removed: placenta Cord Vessel Description: 3 Vessels Cord Entanglement: None A Gender: Male (1 minute): 9 (5 minute): 9 Delayed Cord Clamping: Yes Post Vaginal Delivery Medications Given After Delivery: IV Pitocin Episiotomy Description: None Laceration: None Complication Complications: None
[2023-05-03] VITALS (17 sets, daily range): BP systolic 89–118; BP diastolic 47–72; PULSE 69–93; RESP 16–18; TEMP 36.4–36.9; O2SAT 94–97
[2023-05-03] MEDS: Oxytocin 15 Units/NS 250ml 15 UNITS/250 ML IV.SOLN 83 UNITS IV (00:09)
[2023-05-03] MEDS: 0.9% Saline Lock 10 ML Syringe IV (03:40)
--- NOTE | 2023-05-03 04:12 | PN_ITS ---
Subjective Subjective patient seen at bedside, doing well. Patient reports good pain control. lochia mild. Objective Data Objective Data Vital Signs: Vital Signs Temp Pulse BP Pulse Ox 98.4 F 85 98/57 L 94 05/03/23 01:47 05/03/23 03:59 05/03/23 03:59 05/03/23 03:59 Weight: 83.518 kg Body Mass Index (BMI) 28.8 Intake & Output: Intake and Output for Last 24 Hours 05/01/23 05/02/23 05/03/23 23:59 23:59 23:59 Intake Total 2339.37 / 2339.37 167 / 167 Output Total 500 / 500 50 / 50 Balance 1839.37 / 1839.37 117 / 117 Lab / Micro Data 05/02/23 16:15 Labs: Laboratory Results - last 24 hr 05/02/23 15:35: Vag Amniotic Fld Detect POSITIVE H 05/02/23 16:15: WBC 10.4, RBC 4.11 L, Hgb 12.1, Hct 36.3 L, MCV 88.3, MCH 29.4, MCHC 33.3, RDW Std Deviation 41.9, RDW Coeff of Nakia 13.0, Plt Count 243, MPV 10.4, Immature Gran % (Auto) 0.500, Neut % (Auto) 78.6 H, Lymph % (Auto) 15.3 L, [place] % (Auto) 4.9, Eos % (Auto) 0.4, Baso % (Auto) 0.3, Absolute Neuts (auto) 8.2 H, Absolute Lymphs (auto) 1.59, Nucleated RBC % 0, Syphilis Total Ab Non- reactive, Blood Type O NEGATIVE, Antibody Screen NEGATIVE 05/02/23 18:50: Urine Opiates Screen NEGATIVE, Urine Methadone Screen NEGATIVE, Ur Barbiturates Screen NEGATIVE, Ur Phencyclidine Scrn NEGATIVE, Ur Amphetamines Screen NEGATIVE, MDMA (Ecstasy) Screen NEGATIVE, U Benzodiazepines Scrn NEGAT RAKESH, Urine Cocaine Screen NEGATIVE, U Cannabinoids Screen NEGATIVE, Ur Drug Screen Comment Physical Exam Narrative Fundus firm Const alert and oriented x3 General Appearance: cooperative HEENT normocephalic Neck General: normal visual inspection GI soft to palpation and non-distended GI Narrative: Fundus firm Extremity normal to inspection and no calf tenderness Skin no rashes or lesions noted Neuro oriented x3 and CN's II-XII intact bilaterally Psych mental status grossly normal Assessment & Plan Assessment/Plan (1) Anemia affecting in third trimester: (2) History of drug abuse: (3) Rh negative state in antepartum period: (4) Vaginal delivery: PLAN: Plan PPD# 1 , Doing well Routine care pain mgmt ambulation
[2023-05-03] MEDS: lamoTRIgine 100 MG Tablet PO (10:12)
[2023-05-03] MEDS: Ibuprofen 600 MG Tablet PO (19:52)
[2023-05-04 05:00] VITALS: BP 106/69; PULSE 74; RESP 17; TEMP 36.3; O2SAT 100
[2023-05-04 08:26] VITALS: BP 106/68; PULSE 67; RESP 16; TEMP 36.4
--- NOTE | 2023-05-04 08:52 | DS.PCM_ITS ---
Providers Date of Admission: 05/02/23 Primary Care Physician: Pati Primary Care Phys Reason For Visit: VAGINAL DELIVERY Diagnosis Discharge Diagnosis (1) Anemia affecting in third trimester: Status: Acute Code(s): O99.013 - Anemia complicating , third trimester (2) History of drug abuse: Status: Acute Code(s): F19.11 - Other psychoactive substance abuse, in remission (3) Rh negative state in antepartum period: Status: Acute Code(s): O26.899 - Other specified related conditions, unspecified trimester; Z67.91 - Unspecified blood type, Rh negative (4) Vaginal delivery: Status: Acute Code(s): O80 - Encounter for full-term uncomplicated delivery Medications at Discharge Home Medications famotidine 20 mg tablet (Pepcid) 20 mg PO DAILY heartburn 04/25/23 ferrous sulfate 325 mg (65 mg iron) tablet 325 mg PO DAILY anemia 04/25/23 lamotrigine 100 mg tablet (Lamictal) 100 mg PO DAILY mood 04/25/23 vit no.95-ferrous fumarate 28 mg-folic acid 800 mcg tablet () 1 tab PO DAILY 04/25/23 Hospital Course Operations - () Procedures None Summary of Care Provided Minutes Spent on Discharge: 16 Hospital Course: Joy 3-year-old 2 para 1 admitted at 39-3/7 weeks gestation in spontaneous labor. was complicated by mood disorder, anemia, Rh- and history of drug use. She had a spontaneous vaginal delivery on 05/02/2023 without complication. By day #2 she was ambulating, urinating and tolerating regular diet and ready for discharge home with routine instructions and follow-up. Physical Exam Const alert and no apparent distress Narrative: Fundus firm, below umbilicus. Weight / BMI Weight Weight: 83.518 kg Body Mass Index (BMI) 28.8 ABG / Lab / Microbiology Data 05/02/23 16:15 D/C Instructions Discharge Diet: No restrictions May resume sexual activity in: 6 weeks Call your doctor if your incision/area has: Continuous Slow Oozing, Sudden Increased Bleeding, Foul Smelling Discharge and Swelling at the incision site Call your doctor if you observe: Fever of 101 or Higher and Inability to urinate Please Follow Up With: Karla House MD When: Follow up with our office in 1 and 6 weeks or as needed. call [phone] or send a [employer] message Meaningful Use Info Meaningful Use Diagnoses (Choose all that apply): None applicable Discharge Plan Admission Admit Date/Time: 05/02/23 15:53 Primary Reason for Your Visit: Attending Provider: Karla House Primary Care Provider: Care Physician,No Primary Discharge Orders/Prescriptions Prescriptions: No Action PNV cmb#95-ferrous fumarate-FA [] 28 mg iron- 800 mcg tablet 1 tab PO DAILY ferrous sulfate 325 mg (65 mg iron) tablet 325 mg PO DAILY famotidine [Pepcid] 20 mg tablet 20 mg PO DAILY lamotrigine [Lamictal] 100 mg tablet 100 mg PO DAILY Referrals / Follow Up: Care Physician,No Primary [Primary Care Provider] - Disposition Disposition (needs filled in before D/C Order can be placed): Home, Self Care
[2023-05-04] MEDS: lamoTRIgine 100 MG Tablet PO (10:17)
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
[2023-05-04 13:25] VITALS: BP 107/68; PULSE 93; RESP 18; TEMP 34.1
== END 2023-05-04 14:45 | disposition home or self-care (01) | DRG 560 ==
LOC: WPOUT 15:55 → WP 15:55
PROVIDERS: Admitting Provider Obstetrics & Gynecology; Visit Provider Obstetrics & Gynecology
DX: O99.824 Streptococcus B carrier state complicating childbirth (principal); Z37.0 Single live birth; O99.344 Other mental disorders complicating childbirth; F19.11 Other psychoactive substance abuse, in remission; F39 Unspecified mood [affective] disorder; F43.10 Post-traumatic stress disorder, unspecified; R82.71 Bacteriuria; O99.892 Other specified diseases and conditions complicating childbirth; O99.324 Drug use complicating childbirth; O99.02 Anemia complicating childbirth; Z3A.39 39 weeks gestation of pregnancy; Z87.891 Personal history of nicotine dependence
CPT/HCPCS: 59025; 59050; 80307; 81002; 84112; 85025; 86780; 86850; 86900; 86901; 99221; J7120; A4216; G0378

== ENCOUNTER 2023-06-29 14:10 | Emergency (ER) | payer MEDICAID, SELFPAY ==
[2023-06-29 14:11] VITALS: BP 120/74; PULSE 124; RESP 16; TEMP 36.6; O2SAT 98; BMI 25.8
[2023-06-29 14:39] LABS: Absolute Lymphocyte Count 2.75 X10^3/uL (0.83-4.51); Absolute Neutrophil Count 3.7 X10^3/uL (2.0-7.7); Basophil# 0.04 X10^3/uL; Basophil% 0.6 % (0-1); Eosinophil# 0.08 X10^3/uL; Eosinophils% 1.1 % (0-5); Hematocrit 40.5 % (37-47); Hemoglobin 13.3 g/dL (12.0-15.0); Lymphocyte # 2.75 X10^3/ul (0.83-4.51); Lymphocyte % 39.2 % (19-41); Mean Corp Hgb Conc 32.8 g/dL (32-36); Mean Corpuscular Hgb 28.4 pg (27.0-32.0); Mean Corpuscular Volume 86.5 fL (81-99); Mean Platelet Vol. 9.9 fl (6.2-12.0); Monocyte% 5.7 % (0-10); NRBC Flagged by Analyzer 0 % (0-5); Neutrophil # 3.73 X10^3/uL (2.7-7.7); Neutrophil % 53.1 % (47-70); Platelet Count 276 K/mm3 (150-450); RBC Distribution Width CV 12.2 % (11.6-14.6); RBC Distribution Width SD 38.6 fl (35.1-43.9); Red Blood Count 4.68 M/mm3 (4.2-5.4)
[2023-06-29 14:52] LABS: Anion Gap 5 (5-15); BUN 9 mg/dL (7-18); BUN/Creat Ratio 14.8 RATIO (10-20); Calcium,Total 9.8 mg/dL (8.5-10.1); Chloride 105 mmol/L (98-107); Creatinine, Serum 0.61 mg/dL (0.55-1.02); EST Glomerular Filtration Rate 129 mL/min (>60); Est Glom Filt Rate - Afr Amer 157 mL/min (>60); Estimated Creatinine Clearance 151.52 ml/min; Glucose 96 mg/dL (74-106); Potassium 3.6 mmol/L (3.5-5.1); Sodium Level 136 mmol/L (136-145)
[2023-06-29 14:57] LABS: Amphetamine Urine VISTA NEGATIVE (<1000 ng/mL); Barbiturate Urine VISTA NEGATIVE (< 200 ng/mL); Benzodiazepine Urine VISTA NEGATIVE (< 200 ng/mL); Cocaine Urine VISTA NEGATIVE (< 300 ng/mL); Ecstacy Urine VISTA NEGATIVE (< 500 ng/mL); Methadone Urine VISTA NEGATIVE (< 300 ng/mL); PCP Urine VISTA NEGATIVE (< 25 ng/mL); THC Urine VISTA NEGATIVE (< 50 ng/mL); Vista UDS pH Range 6
[2023-06-29 15:18] LABS: Internal QC Validated? YES +Cl - CLEAR BKGD; Pregnancy, Serum, hCG Quali. NEGATIVE Negative
[2023-06-29 15:22] LABS: Alcohol, Blood (Medical)-Serum < 3.0 mg/dL
--- NOTE | 2023-06-29 16:13 | EX.ED.VIS.PS ---
HPI HPI - Psych History of Present Illness Chief Complaint: Suicidal Informant: patient and parent Narrative Narrative: Patient presents with depression. Patient has a baseline history of depression. She is on a mood stable or but does not know the name of the medicine. She has a history of depression prior to her first child. She had depression with that child. It did get better but took a while. She started to have worsening depression about 2 to 3 weeks after delivery of this recent child. Delivery was 02 May 2023. She has never had thoughts of hurting either of the children. But she has had thoughts that they would be better if she was . She has not had thoughts of cutting herself. She has not actually attempted anything. She is seeking help and improvement. [facility] Medical History Anemia Anemia affecting in third trimester Anxiety Depression Gestational diabetes History of drug abuse depression PTSD (post-traumatic stress disorder) Substance abuse Suicide attempt Vaginal delivery Home Medications lamotrigine 100 mg tablet (Lamictal) 100 mg PO DAILY mood 04/25/23 [History Last Taken 04/30/23 22:00] Allergy/AdvReac Type Severity Reaction Status Date / Time No Known Allergies Allergy Verified 05/02/23 19:47 Social History household members: children Smoking Status: Current some day smoker tobacco type: cigarettes substance use type: does not use ROS ROS ED Constitutional Constitutional ED: Denies chills or fever(s) Eyes Eyes: Denies change in vision ENT ENT ED: Denies rhinorrhea Cardiovascular Cardiovascular: Denies chest pain Respiratory/Chest Respiratory/Chest: Denies cough Gastrointestinal Gastrointestinal: Denies diarrhea, nausea or vomiting Genitourinary Genitourinary ED: Denies dysuria Musculoskeletal Musculoskeletal: Denies myalgias Integumentary Denies rash Neurologic Neurologic: Denies headache(s) Psychiatric Psychiatric: Reports depression and suicidal ideation Allergic/Immunologic Allergic/Immunologic ED: Denies urticaria EXAM Physical Exam Narrative Exam Narrative: CONSTITUTIONAL: Patient is nontoxic in appearance. The patient looks comfortable. Work of breathing looks normal. She is very cooperative. HEENT: No notable trauma. Mucous membranes moist. EYES: No conjunctival injection. No icterus. NECK:No JVD. No stridor. CARDIOVASCULAR: Regular rate. Regular rhythm. No notable murmur. No JVD. RESPIRATORY: No respiratory distress. Breathing is unlabored. No wheezes. GASTROINTESTINAL: Not distended. Bowel sounds are normal. No tenderness. GENITOURINARY: No tenderness over the bladder. No CVA tenderness. MUSCULOSKELETAL: Atraumatic. No peripheral edema. No lacerations. NEUROLOGICAL: Patient is alert and appropriate. No focal deficit noted. SKIN: No noted rashes. No diaphoresis. PSYCHIATRIC: Patient is calm. Mildly flat affect. Reasonably good eye contact. Const Vital Signs: 06/29/23 14:11 06/29/23 19:33 06/29/23 23:25 Temperature 97.8 F 97.5 F L 97.9 F Temperature Source Temporal Temporal Temporal Pulse Rate 124 H 79 86 Respiratory Rate 16 16 18 Blood Pressure 120/74 98/56 L Blood Pressure Mean 89 70 Pulse Ox 98 98 96 Oxygen Delivery Method Room Air Room Air MDM MDM MDM Narrative Medical decision making narrative: Patient CBC is normal. Patient's electrolytes are normal. Patient's serum is negative. Patient's alcohol is negative. Patient's urine toxicology screens is negative. Crisis is seeing the patient. At this point, plan is placement and we are awaiting an accepting facility. Lab Data Attestation: I reviewed the patient's lab results. Labs: Laboratory Results - last 24 hr 06/29/23 06/29/23 14:21 14:30 WBC 7.0 RBC 4.68 Hgb 13.3 Hct 40.5 MCV 86.5 MCH 28.4 MCHC 32.8 RDW Std Deviation 38.6 RDW Coeff of Nakia 12.2 Plt Count 276 MPV 9.9 Immature Gran % (Auto) 0.300 Neut % (Auto) 53.1 Lymph % (Auto) 39.2 [place] % (Auto) 5.7 Eos % (Auto) 1.1 Baso % (Auto) 0.6 Absolute Neuts (auto) 3.7 Absolute Lymphs (auto) 2.75 Nucleated RBC % 0 Sodium 136 Potassium 3.6 Chloride 105 Carbon Dioxide 26.0 Anion Gap 5 BUN 9 Creatinine 0.61 Estim Creat Clear Calc 151.52 Est GFR (MDRD) Af Amer 157 Est GFR (MDRD) Non-Af 129 BUN/Creatinine Ratio 14.8 Glucose 96 Calcium 9.8 Serum , Qual NEGATIVE Urine Opiates Screen NEGATIVE Urine Methadone Screen NEGATIVE Ur Barbiturates Screen NEGATIVE Ur Phencyclidine Scrn NEGATIVE Ur Amphetamines Screen NEGATIVE MDMA (Ecstasy) Screen NEGATIVE U Benzodiazepines Scrn NEGATIVE Urine Cocaine Screen NEGATIVE U Cannabinoids Screen NEGATIVE Ur Drug Screen Comment Ethyl Alcohol < 3.0 Discharge Plan Triage Chief Complaint: Suicidal ED Provider: Moises Joya Dx/Rx/DC Orders Clinical Impression: Depression, , Suicidal ideations Prescriptions: No Action lamotrigine [Lamictal] 100 mg tablet 100 mg PO DAILY Primary Care Provider: Care Physician,No Primary Referrals: Care Physician,No Primary [Primary Care Provider] - Disposition Disposition: Psychiatric Hospital or Unit
--- NOTE | 2023-06-29 16:21 | NURSING ---
FAXED CHART TO [facility]
--- NOTE | 2023-06-29 16:22 | NURSING ---
CALLED [facility]. TALKED TO SONAM
--- NOTE | 2023-06-29 17:25 | NURSING ---
[facility] CALLED AND WILL BE HERE AFTER 1800
--- NOTE | 2023-06-29 18:30 | NURSING ---
COUNSELING [facility] WILL BE LATER
[2023-06-29 19:33] VITALS: PULSE 79; RESP 16; TEMP 36.4; O2SAT 98
[2023-06-29 23:25] VITALS: BP 98/56; PULSE 86; RESP 18; TEMP 36.6; O2SAT 96
--- NOTE | 2023-06-30 01:39 | ED.RN ---
[facility] accepts patient but patient can not arrive before 0800 06/30/23. Accepted by Dr Alexandrea Ash. Phone number for report [phone] ext [phone]. Called [facility], ETA [id number].
--- NOTE | 2023-06-30 03:07 | ED.RN ---
Rn attempted to call report to keshav weathers but the RN requested report be given after 0700.
[2023-06-30 03:26] VITALS: PULSE 56; RESP 18; O2SAT 99
[2023-06-30 06:00] VITALS: BP 121/62; PULSE 72; RESP 18; TEMP 36.3; O2SAT 99
[2023-06-30 08:28] VITALS: BP 102/62; PULSE 100; RESP 16; TEMP 35.8; O2SAT 98
--- NOTE | 2023-06-30 08:45 | NURSING ---
called squad, eta is 50 min
[2023-06-30 09:52] VITALS: BP 102/62; PULSE 100; RESP 16; O2SAT 98
== END 2023-06-30 10:01 ==
PROVIDERS: Emergency Provider Emergency Medicine; Visit Provider Emergency Medicine
DX: F53.0 Postpartum depression (principal); R45.851 Suicidal ideations; O99.335 Smoking (tobacco) complicating the puerperium; F17.210 Nicotine dependence, cigarettes, uncomplicated
CPT/HCPCS: 80048; 80307; 80320; 84703; 85025; 99284; G0480

== ENCOUNTER 2023-07-21 22:45 | Emergency (ER) | payer MEDICAID, SELFPAY ==
[2023-07-21 22:45] VITALS: BP 123/85; PULSE 120; RESP 18; TEMP 36.6; O2SAT 99; BMI 23.5
--- NOTE | 2023-07-21 23:17 | EDS_ITS ---
HPI History of Present Illness Chief Complaint: Dental Informant: patient Onset/Context/Timing Onset: Today Context: Gradual Onset Timing: Continuous Quality: ache Location: R mandib molar Current Severity: Moderate Maximum Severity: Moderate Associated Symptoms Assocated Symptom - Dental: jaw swelling; Negative for fever Narrative Narrative: Patient with known dental decay started having pain and swelling today. No d ischarge or bleeding. No fevers or chills. PFSH PFS Medical History Anemia Anemia affecting in third trimester Anxiety Depression Gestational diabetes History of drug abuse depression PTSD (post-traumatic stress disorder) Substance abuse Suicide attempt Vaginal delivery Home Medications lamotrigine 100 mg tablet (Lamictal) 100 mg PO DAILY mood 04/25/23 [History Last Taken 04/30/23 22:00] amoxicillin 500 mg tablet 500 mg PO TID #30 tabs 07/21/23 [Rx Last Taken Unknown] Allergy/AdvReac Type Severity Reaction Status Date / Time No Known Allergies Allergy Verified 07/21/23 22:45 Social History household members: children Smoking Status: Current some day smoker tobacco type: cigarettes substance use type: does not use ROS ROS ED Constitutional Constitutional ED: Denies chills or fever(s) Eyes Eyes: Denies change in vision or double vision ENT ENT ED: Reports dental pain; Denies sinus pain or throat swelling Cardiovascular Cardiovascular: Denies chest pain or palpitations Respiratory/Chest Respiratory/Chest: Denies cough or dyspnea Integumentary Denies abscess or rash Neurologic Neurologic: Denies headache(s), paresthesias or weakness EXAM Physical Exam Const Vital Signs: 07/21/23 22:45 Temperature 97.8 F Temperature Source Temporal Pulse Rate 120 H Respiratory Rate 18 Blood Pressure 123/85 H Blood Pressure Mean 97 Pulse Ox 99 Positive well nourished and well developed General Appearance ED: well developed and NAD HEENT HEENT Narrative: Multifocal dental decay. There is significant decay in the right first mandibu lar molar where there is tenderness at the tooth and the buccal mucosa/gingiva nearby. There is no bleeding or discharge. There is no palpable collection although she does have some asymmetry in the face externally with some swelling next to this tooth. There is no evidence of gingivitis or hypertrophy there. Face and Sinus: sinuses nontender Throat: posterior oropharynx normal Eyes PERRL and EOMs intact bilaterally Neck no lymphadenopathy and supple Resp normal respiratory effort Neuro oriented x3 and CN's II-XII intact bilaterally Sensorium / Orientation: alert Gait (Neuro): normal gait Psych mental status grossly normal and thought process normal Skin no rashes or lesions noted and no wounds MDM MDM MDM Narrative Medical decision making narrative: Patient able to tolerate amoxicillin and will be prescribed it, we will have the prescription filled here and she can take the first dose here before leaving. She was offered analgesics even [id number] she declines and states she is okay right now. Dental follow-up given. Discharge Plan Triage Chief Complaint: Dental ED Provider: Juan Alford Dx/Rx/DC Orders Clinical Impression: Infected dental caries Instructions: ED Dental Cavity Prescriptions: New amoxicillin 500 mg tablet 500 mg PO TID Qty: 30 0RF No Action lamotrigine [Lamictal] 100 mg tablet 100 mg PO DAILY Primary Care Provider: Care Physician,No Primary Referrals: Dentist,Your [STAFF PHYSICIAN] - As soon as possible Disposition Disposition: Home, Self Care
[2023-07-21 23:20] VITALS: BP 123/85; PULSE 120; RESP 18; TEMP 36.6; O2SAT 99
== END 2023-07-21 23:30 | disposition home or self-care (01) ==
PROVIDERS: Emergency Provider Emergency Medicine; Visit Provider Emergency Medicine
DX: K02.9 Dental caries, unspecified (principal); F32.A Depression, unspecified; F41.9 Anxiety disorder, unspecified; Z79.899 Other long term (current) drug therapy; F17.210 Nicotine dependence, cigarettes, uncomplicated
CPT/HCPCS: 99282

== ENCOUNTER 2023-08-21 20:11 | Emergency (ER) | payer MEDICAID, SELFPAY ==
[2023-08-21 20:11] VITALS: BP 121/82; PULSE 90; RESP 14; TEMP 36.6; O2SAT 98; BMI 26.4
--- NOTE | 2023-08-21 20:47 | ED.VIS.DENTA ---
HPI History of Present Illness Chief Complaint: Dental Informant: patient Narrative Narrative: 23-year-old female presenting to the emergency room chief complaint of dental pain. Patient states that she has been seen by dentistry in [place]. They put her on an antibiotic and wanted her to get some mouthwash but her insurance would not cover it. She references this as it was recent but when asked specifically when this occurred she tells me that it was several months ago. She states 2 weeks ago while eating a sandwich a tooth broke on the left upper side. She notes pain left upper teeth right upper teeth right lower teeth and a headache. Patient denies any fever. Headache is mild diffuse. Nothing seems to make it better or worse. She took some ibuprofen and that helped her headache and her dental pain today. Once it wore off however she decided to come to emergency. She would like to see somebody else for dentistry other than [facility]. So she is going to try to make an appointment [address]. Patient is a smoker. [facility] Medical History Anemia Anemia affecting in third trimester Anxiety Depression Gestational diabetes History of drug abuse depression PTSD (post-traumatic stress disorder) Substance abuse Suicide attempt Vaginal delivery Home Medications lamotrigine 100 mg tablet (Lamictal) 100 mg PO DAILY mood 04/25/23 [History Last Taken 04/30/23 22:00] amoxicillin 500 mg tablet 500 mg PO TID #30 tabs 07/21/23 [Rx Last Taken Unknown] chlorhexidine gluconate 0.12 % mouthwash 15 ml buccal BID #1,893 mL 08/21/23 [Rx Last Taken Unknown] naproxen 500 mg tablet 500 mg PO BID #20 tabs 08/21/23 [Rx Last Taken Unknown] penicillin V potassium 500 mg tablet 500 mg PO 4X/DAY #40 tabs 08/21/23 [Rx Last Taken Unknown] Allergy/AdvReac Type Severity Reaction Status Date / Time No Known Allergies Allergy Verified 08/21/23 20:12 Social History household members: children Smoking Status: Current some day smoker tobacco type: cigarettes substance use type: does not use ROS ROS ED Constitutional Constitutional ED: Denies chills, fever(s) or weight loss Eyes Eyes: Denies change in vision or diplopia ENT ENT ED: Reports other Details: Dental pain. Widespread dental caries. Gum bleeding. ; Denies ear pain, rhinorrhea or sore throat Cardiovascular Cardiovascular: Denies chest pain, orthopnea, palpitations or racing heartbeat Respiratory/Chest Respiratory/Chest: Denies cough, dyspnea or orthopnea Gastrointestinal Gastrointestinal: Denies abdominal pain, diarrhea, nausea or vomiting Genitourinary Genitourinary ED: Denies dysuria, hematuria or urinary frequency Musculoskeletal Musculoskeletal: Denies arthralgias or myalgias Integumentary Denies abscess or rash Neurologic Neurologic: Denies headache(s) or weakness Psychiatric Psychiatric: Denies anxiety, depression, suicidal ideation or suicidal thoughts Endocrine Endocrinology: Denies polydipsia, polyphagia or polyuria Allergic/Immunologic Allergic/Immunologic ED: Denies mouth swelling, tongue swelling or urticaria EXAM Physical Exam Const Vital Signs: 08/21/23 20:11 Temperature 98 F Temperature Source Temporal Pulse Rate 90 Respiratory Rate 14 Blood Pressure 121/82 H Blood Pressure Mean 95 Pulse Ox 98 Oxygen Delivery Method Room Air Positive well nourished and well developed General Appearance ED: well developed HEENT Reports normocephalic, head/scalp atraumatic, TM's clear and moist mucous membranes HEENT Narrative: Patient has widespread dental decay. She has evidence of gingivitis. She has receding of her gums along many of the decayed teeth. Some teeth are decayed to the gumline. I do not appreciate an obvious dental abscess. I do not appreciate facial swelling or trismus. Floor the mouth is soft. I do not not appreciate any overlying facial or mandibular erythema. Face and Sinus: sinuses nontender Tympanic Membrane ED: Yes TM's clear Teeth and Gingiva: abnormal tooth and associated gingiva, caries and gingiva abnormal Positive for gingival tenderness, receeding gingiva and gingival discoloration; Negative for gingival edema or purulent d/c from gingiva Eyes PERRL and EOMs intact bilaterally Neck no lymphadenopathy, supple and no JVD Resp normal respiratory effort and clear to auscultation bilaterally Cardio regular rate, regular rhythm and no murmurs GI normal to inspection, nondistended, normoactive bowel sounds and non-tender Palpation: soft Back/Spine no CVA tenderness and normal ROM Extremity normal to inspection General Extremety ED: Negative for edema General Extremity: Negative for edema Neuro oriented x3 and CN's II-XII intact bilaterally Sensorium / Orientation: alert Motor Exam: strength 5/5 throughout Psych mental status grossly normal Mood & Affect: Negative for depressed or tearful Skin no rashes or lesions noted and no wounds MDM MDM MDM Narrative Medical decision making narrative: I am going to write for some penicillin anti-inflammatories and chlorhexidine rinse. Will refer her to we will start 7. Would recommend any dentist evaluation as soon as possible. Discharge Plan Triage Chief Complaint: Dental ED Provider: Saleem Shell Dx/Rx/DC Orders Clinical Impression: Dental caries, Gingivitis Instructions: Understanding Gingivitis, ED Dental Cavity Prescriptions: New penicillin V potassium 500 mg tablet 500 mg PO 4X/DAY Qty: 40 0RF chlorhexidine gluconate 0.12 % mouthwash 15 ml buccal BID Qty: 1893 0RF naproxen 500 mg tablet 500 mg PO BID Qty: 20 0RF No Action lamotrigine [Lamictal] 100 mg tablet 100 mg PO DAILY amoxicillin 500 mg tablet 500 mg PO TID Qty: 30 0RF Primary Care Provider: Care Physician,No Primary Referrals: Margi Collier [Non-Staff] - As soon as possible Care Physician,No Primary [Primary Care Provider] - Disposition Disposition: Home, Self Care
== END 2023-08-21 21:12 | disposition home or self-care (01) ==
PROVIDERS: Emergency Provider Emergency Medicine; Visit Provider Emergency Medicine
DX: K02.9 Dental caries, unspecified (principal); K05.10 Chronic gingivitis, plaque induced; R51.9 Headache, unspecified; F17.210 Nicotine dependence, cigarettes, uncomplicated; Z79.899 Other long term (current) drug therapy
CPT/HCPCS: 99282

== ENCOUNTER 2023-11-27 12:26 | Emergency (ER) | payer MEDICAID, SELFPAY ==
[2023-11-27 12:27] VITALS: BP 105/70; PULSE 97; RESP 16; TEMP 36.2; O2SAT 99; BMI 27.7
--- NOTE | 2023-11-27 13:01 | EDS_ITS ---
HPI History of Present Illness Chief Complaint: Dental Informant: patient Narrative Narrative: 23-year-old female presents with 2-3 days of worsening right maxillary dental pain and now some swelling. No discharge or bleeding. No rhinorrhea. No fevers or chills. [facility] Medical History Vaginal delivery Anemia affecting in third trimester History of drug abuse Suicide attempt PTSD (post-traumatic stress disorder) Substance abuse Anemia depression Depression Gestational diabetes Anxiety Home Medications ?Medication ?Instructions ?Recorded ?Last Taken ?Type lamotrigine 100 mg tablet 100 mg PO DAILY mood 04/25/23 04/30/23 22:00 History (Lamictal) amoxicillin 500 mg tablet 500 mg PO TID #30 tabs 07/21/23 Unknown Rx chlorhexidine gluconate 0.12 % 15 ml buccal BID #1,893 mL 08/21/23 Unknown Rx mouthwash naproxen 500 mg tablet 500 mg PO BID #20 tabs 08/21/23 Unknown Rx penicillin V potassium 500 mg 500 mg PO 4X/DAY #40 tabs 08/21/23 Unknown Rx tablet amoxicillin 500 mg tablet 500 mg PO TID #30 tabs 11/27/23 Unknown Rx Allergy/AdvReac Type Severity Reaction Status Date / Time No Known Allergies Allergy Verified 11/27/23 12:27 Social History household members: children Smoking Status: Current some day smoker tobacco type: cigarettes substance use type: does not use ROS ROS ED Constitutional Constitutional ED: Denies chills or fever(s) Eyes Eyes: Denies change in vision or double vision ENT ENT ED: Reports dental pain; Denies ear pain, rhinorrhea, sinus pain or throat swelling Cardiovascular Cardiovascular: Denies chest pain or palpitations Respiratory/Chest Respiratory/Chest: Denies cough or dyspnea Integumentary Denies abscess or rash Neurologic Neurologic: Denies headache(s), paresthesias or weakness EXAM Physical Exam Const Vital Signs: 11/27/23 12:27 Temperature 97.1 F L Temperature Source Temporal Pulse Rate 97 Respiratory Rate 16 Blood Pressure 105/70 Blood Pressure Mean 81 Pulse Ox 99 Oxygen Delivery Method Room Air Positive well nourished and well developed General Appearance ED: well developed and NAD HEENT HEENT Narrative: Swelling about the right maxillary face without fluctuance or focal palpable collection. It is mildly tender. Intraorally, there is no trismus, she has extremely poor dentition with multifocal decay, tooth #3 is tender more so than the rest. There is not a palpable collection or obvious gingival abscess. No active bleeding or discharge. Face and Sinus: sinuses nontender Throat: posterior oropharynx normal Eyes PERRL and EOMs intact bilaterally Neck no lymphadenopathy and supple Resp normal respiratory effort Neuro oriented x3 and CN's II-XII intact bilaterally Sensorium / Orientation: alert Gait (Neuro): normal gait Psych mental status grossly normal and thought process normal Skin no rashes or lesions noted and no wounds MDM MDM MDM Narrative Medical decision making narrative: I believe treating the patient with antibiotics is indicated here for probable early abscess, but there is no palpable collection to suggest that attempting aspiration with a needle would be beneficial here. Get a give her a dose of Decadron, she is not a diabetic, that may help with the pain and swelling in addition to a dose of ibuprofen as she is here with her daughter and driving. She has ibuprofen at home but has not had a dose yet today. She is comfortable with that overall plan. Dental follow-up advised. Discharge Plan Triage Chief Complaint: Dental ED Provider: Juan Alford Dx/Rx/DC Orders Clinical Impression: Dental abscess, Dental decay Instructions: ED Dental Abscess Prescriptions: New amoxicillin 500 mg tablet 500 mg PO TID Qty: 30 0RF No Action lamotrigine [Lamictal] 100 mg tablet 100 mg PO DAILY amoxicillin 500 mg tablet 500 mg PO TID Qty: 30 0RF penicillin V potassium 500 mg tablet 500 mg PO 4X/DAY Qty: 40 0RF chlorhexidine gluconate 0.12 % mouthwash 15 ml buccal BID Qty: 1893 0RF naproxen 500 mg tablet 500 mg PO BID Qty: 20 0RF Primary Care Provider: Care Physician,No Primary Referrals: Care Physician,No Primary [Primary Care Provider] - Dentist,Your [STAFF PHYSICIAN] - As soon as possible Print Language: Estonian Disposition Disposition: Home, Self Care
[2023-11-27] MEDS: AMOXICILLIN 500 MG CAPSULE PO (13:17)
[2023-11-27] MEDS: Ibuprofen 600 MG Tablet PO (13:17)
[2023-11-27] MEDS: dexAMETHasone 4 MG Tablet 8 MG PO (13:17)
[2023-11-27 13:19] VITALS: BP 128/66; PULSE 67; RESP 15; TEMP 36.1; O2SAT 98
== END 2023-11-27 13:25 | disposition home or self-care (01) ==
PROVIDERS: Emergency Provider Emergency Medicine; Visit Provider Emergency Medicine
DX: K04.7 Periapical abscess without sinus (principal); K02.9 Dental caries, unspecified; F17.210 Nicotine dependence, cigarettes, uncomplicated; Z79.899 Other long term (current) drug therapy
CPT/HCPCS: 99283

== ENCOUNTER 2023-11-29 10:51 | Emergency (ER) | payer MEDICAID, SELFPAY ==
[2023-11-29 10:52] VITALS: BP 122/83; PULSE 109; RESP 20; TEMP 35.9; O2SAT 96; BMI 28.3
--- NOTE | 2023-11-29 11:08 | EDS_ITS ---
HPI History of Present Illness Chief Complaint: Other, Pain/Inj Detail of Chief Complaint: Right upper jaw pain and swelling. Currently on antibiotics. Onset/Context/Timing Onset: Days Context: Gradual Onset Timing: Continuous Current Severity: Mild Maximum Severity: Mild Relieved by: NSAIDs Associated Symptoms Assocated Symptom - Dental: jaw swelling; Negative for fever Narrative Narrative: 23-year-old female past medical history of PTSD and drug abuse history. Currently has a dental infection right upper jaw. Was seen in the emergency department started on amoxicillin. She said the swelling is gotten worse. She is able to swallow and breathe. Denies any fever or chills. Prior similar symptoms: Yes Recent Illness/Hospitalization: No PFSH PFS Medical History Vaginal delivery Anemia affecting in third trimester History of drug abuse Suicide attempt PTSD (post-traumatic stress disorder) Substance abuse Anemia depression Depression Gestational diabetes Anxiety Home Medications ?Medication ?Instructions ?Recorded ?Last Taken ?Type lamotrigine 100 mg tablet 100 mg PO DAILY mood 04/25/23 04/30/23 22:00 History (Lamictal) amoxicillin 500 mg tablet 500 mg PO TID #30 tabs 07/21/23 Unknown Rx chlorhexidine gluconate 0.12 % 15 ml buccal BID #1,893 mL 08/21/23 Unknown Rx mouthwash naproxen 500 mg tablet 500 mg PO BID #20 tabs 08/21/23 Unknown Rx penicillin V potassium 500 mg 500 mg PO 4X/DAY #40 tabs 08/21/23 Unknown Rx tablet amoxicillin 500 mg tablet 500 mg PO TID #30 tabs 11/27/23 Unknown Rx Allergy/AdvReac Type Severity Reaction Status Date / Time No Known Allergies Allergy Verified 11/27/23 12:27 Social History household members: children Smoking Status: Current some day smoker tobacco type: cigarettes substance use type: does not use ROS ROS ED ROS Narrative Facial and jaw pain and swelling. Review of Systems ROS Unobtainable: Denies due to encephalopathy Constitutional Constitutional ED: Denies chills or fever(s) Eyes Eyes: Denies blurry vision ENT ENT ED: Denies ear pain Cardiovascular Cardiovascular: Denies chest pain Respiratory/Chest Respiratory/Chest: Denies cough or dyspnea Gastrointestinal Gastrointestinal: Denies abdominal pain Genitourinary Genitourinary ED: Denies dysuria or hematuria Musculoskeletal Musculoskeletal: Denies arthralgias Integumentary Denies abscess or Abrasions Neurologic Neurologic: Denies headache(s) Psychiatric Psychiatric: Denies anxiety or depression Endocrine Endocrinology: Denies cold intolerance Hematologic/Lymphatic Hematologic/Lymphatic: Denies easy bleeding, easy bruising or lymphadenopathy Allergic/Immunologic Allergic/Immunologic ED: Reports mouth swelling; Denies tongue swelling or urticaria EXAM Physical Exam Narrative Exam Narrative: Well-appearing 20-year-old female. Vital signs stable afebrile. H EENT exam s he has swelling to the right side of her jaw cheek and around her right eye. There is no proptosis. She has no pain with movement of the eye. There is no cellulitis. Dentition she has very poor dentition. Multiple missing and decaying teeth. The right upper jaw the second to last molar is basically completely decayed. The gum swollen but there is no fluctuance or drainable abscess. She is able to open close her mouth. Posterior pharynx is unremarkable. She has no trouble swallowing or breathing. There is no drooling. Underneath her tongue there is no swelling of the soft tissue nor is it tender. Neck nontender no lymphadenopathy. Lungs clear. Heart regular rhythm no murmur. Abdomen soft nontender. Otherwise exam unremarkable. Const Vital Signs: 11/29/23 10:52 Temperature 96.7 F L Temperature Source Temporal Pulse Rate 109 H Respiratory Rate 20 H Blood Pressure 122/83 H Blood Pressure Mean 96 Pulse Ox 96 Oxygen Delivery Method Room Air Positive well nourished and well developed; Negative for cachectic, contractures or unkempt General Appearance ED: well developed and NAD; Negative for unkempt, cachectic or contractures Nutritional Appearance: Negative for cachectic HEENT Negative for trauma or tenderness Face and Sinus: Negative for sinuses nontender Mouth ED: Yes oral and palatal mucosa abnormal Mouth: oral and palatal mucosa abnormal Teeth and Gingiva: abnormal tooth and associated gingiva, caries, gingiva abnormal, poor dentition and teeth discoloration Throat: posterior oropharynx normal Eyes PERRL and EOMs intact bilaterally General Eye ED: Negative for pale conjunctiva or scleral icterus Visual Acuity: Negative for other Neck no lymphadenopathy, supple and no JVD General: normal visual inspection Lymph Lymphatic: no lymphadenopathy noted; Negative for lymphadenopathy Chest Wall inspection of chest normal and palpation of chest normal Chest: Negative for other Resp normal respiratory effort, no retractions and clear to auscultation bilaterally Effort and Inspection: Negative for other Cardio regular rate, regular rhythm, S1 normal heart sound, S2 normal heart sound and no murmurs Jugular Venous Distention: Negative for other Palpation: Negative for palpable S3 or palpable S4 Rate: Negative for bradycardia or tachycardic Rhythm: Negative for abnormal rhythm GI normal to inspection, nondistended, normoactive bowel sounds, non-tender, non- distended and no masses Inspection: Negative for other Palpation: soft Back/Spine no CVA tenderness General Back: Negative for CVA tenderness Cervical Spine: Negative for other Thoracic Spine / Upper Back: thoracic spinal tenderness; Negative for paraspinal muscle tenderness Extremity normal to inspection and no joint enlargement General Extremety ED: Negative for edema or other findings General Extremity: Negative for edema or other findings Neuro oriented x3, CN's II-XII intact bilaterally, moves all extremities and no focal motor deficits Sensorium / Orientation: alert, oriented to person, oriented to place and oriented to time; Negative for orientation impaired Gait (Neuro): Negative for normal gait Sensory Exam: No sensory level loss detected Motor Exam: strength 5/5 throughout Psych mental status grossly normal Appearance: Negative for unkempt Attitude: No agitated and No other Mood & Affect: Negative for depressed, anxious or tearful Skin no rashes or lesions noted and no wounds General Skin Exam: Negative for other MDM MDM MDM Narrative Medical decision making narrative: 23-year-old female has dental decay and abscess nothing to drain at this time. Continue Motrin Tylenol for pain and inflammation. Ice. I am increasing her antibiotic to 4 times a day. She has a dental appointment in [place] on Thursday. She knows to return if this gets significantly worse but there is nothing to do different this time she is only been on the antibiotic 2 days. Discharge Plan Triage Chief Complaint: Other, Pain/Inj ED Provider: Armando Rand Dx/Rx/DC Orders Clinical Impression: Dental abscess, Dental decay Instructions: Dental Abscess Prescriptions: No Action lamotrigine [Lamictal] 100 mg tablet 100 mg PO DAILY amoxicillin 500 mg tablet 500 mg PO TID Qty: 30 0RF penicillin V potassium 500 mg tablet 500 mg PO 4X/DAY Qty: 40 0RF chlorhexidine gluconate 0.12 % mouthwash 15 ml buccal BID Qty: 1893 0RF naproxen 500 mg tablet 500 mg PO BID Qty: 20 0RF amoxicillin 500 mg tablet 500 mg PO TID Qty: 30 0RF Primary Care Provider: Care Physician,No Primary Referrals: Care Physician,No Primary [Primary Care Provider] - Activity Restrictions/Additional Instructions: Alternate Tylenol and Motrin for pain. Do Motrin help decrease the swelling. Ice your face and jaw. Increase your antibiotic use to 4 times a day. When you follow-up with a dentist they may need to write you for additional antibiotics to be taken for longer. Return if this is a lot worse we just need to give the antibiotic time to work right now. There is nothing to drain currently. Warm salt water gargling and rinses in your mouth and/or water and peroxide. Print Language: South Sudanese Disposition Disposition: Home, Self Care
== END 2023-11-29 11:22 | disposition home or self-care (01) ==
LOC: ED 11:15
PROVIDERS: Emergency Provider Emergency Medicine; Visit Provider Emergency Medicine
DX: K04.7 Periapical abscess without sinus (principal); K02.9 Dental caries, unspecified; R68.84 Jaw pain; F17.210 Nicotine dependence, cigarettes, uncomplicated; Z79.899 Other long term (current) drug therapy
CPT/HCPCS: 99282

== ENCOUNTER 2024-06-30 12:22 | Emergency (ER) | payer MEDICAID, SELFPAY ==
[2024-06-30 12:22] VITALS: BP 121/77; PULSE 89; RESP 16; TEMP 36.6; O2SAT 99; BMI 25.8
--- NOTE | 2024-06-30 13:43 | CT_ITS ---
PROCEDURE: ABDOMEN/PELVIS W IV CONT ONLY REASON FOR EXAM: Possible appendicitis. Lower abdominal pain with nausea and diarrhea. TECHNIQUE: Abdomen and pelvis CT with intravenous contrast. IV CONTRAST: 100 mL of Isovue-300. COMPARISON: None. FINDINGS: Lung bases: Clear Liver: Unremarkable. Gallbladder: Unremarkable. Spleen: Unremarkable. Pancreas: Unremarkable. Adrenals: Unremarkable. Kidneys: Unremarkable. Bladder: Unremarkable. Reproductive Organs: There is a 1.6 cm left ovarian dominant follicle. Bowel: Unremarkable. Appendix: Normal. Lymph nodes: No suspicious lymph node enlargement. Vasculature: Major vascular structures are unremarkable. Peritoneum / Retroperitoneum: No ascites. No free air. Bones: Unremarkable. CT/Abdomen/Pelvis W IV Cont ONLY IMPRESSION: Left ovarian follicle. One or more dose reduction techniques were used (e.g., Automated exposure contr ol, adjustment of the mA and/or kV according to patient size, use of iterative reconstruction technique). Reading Location: [id number]
[2024-06-30 13:55] LABS: Absolute Lymphocyte Count 2.52 X10^3/uL (0.83-4.51); Absolute Neutrophil Count 2.9 X10^3/uL (2.0-7.7); Basophil# 0.03 X10^3/uL; Basophil% 0.5 % (0-1); Eosinophil# 0.14 X10^3/uL; Eosinophils% 2.3 % (0-5); Hematocrit 37.7 % (37-47); Hemoglobin 12.2 g/dL (12.0-15.0); Lymphocyte # 2.52 X10^3/ul (0.83-4.51); Lymphocyte % 42.1 % (19-41); Mean Corp Hgb Conc 32.4 g/dL (32-36); Mean Corpuscular Hgb 27.7 pg (27.0-32.0); Mean Corpuscular Volume 85.7 fL (81-99); Monocyte% 6.7 % (0-10); NRBC Flagged by Analyzer 0 % (0-5); Neutrophil # 2.89 X10^3/uL (2.7-7.7); Neutrophil % 48.2 % (47-70); Platelet Count 257 K/mm3 (150-450); RBC Distribution Width CV 13.2 % (11.6-14.6)
[2024-06-30 14:00] LABS: Mucous, Urine 0 SEEN /hpf (<or=2+); Red Blood Cells-Urine 0 SEEN /hpf (0-5)
[2024-06-30] MEDS: Ketorolac 15 MG/ML Vial IV (14:01)
[2024-06-30 14:02] LABS: Glucose, Dipstick Normal (Normal); Ketone-Dipstick Negative (Negative); Leukocyte Esterase-Dipstick 25 /ul (Negative); Nitrite-Dipstick Negative (Negative); Occult Blood-Urine Negative /ul (Negative); Protein-Dipstick Negative (Negative); Specific Gravity, Urine 1.005 (1.002-1.030); Urine Bilirubin Dipstick Negative (Negative); Urine Urobilinogen Normal (Normal)
[2024-06-30 14:09] LABS: Color, Urine Straw (Yellow); Urine Clarity Clear (Clear)
[2024-06-30 14:10] LABS: AST(SGOT) 12 U/L (15-37); Alanine Aminotransfer ALT/SGPT 16 U/L (13-56); Alkaline Phosphatase 83 U/L (45-117); Anion Gap 7 (5-15); BUN 6 mg/dL (7-18); BUN/Creat Ratio 10.1 RATIO (10-20); Calcium,Total 9.6 mg/dL (8.5-10.1); Chloride 110 mmol/L (98-107); Creatinine, Serum 0.59 mg/dL (0.55-1.02); EST Glomerular Filtration Rate 132 mL/min (>60); Est Glom Filt Rate - Afr Amer 160 mL/min (>60); Estimated Creatinine Clearance 155.32 ml/min; Globulin 3.9 g/dL (2.2-4.2); Glucose 90 mg/dL (74-106); Potassium 3.4 mmol/L (3.5-5.1); Protein, Total 7.9 g/dL (6.4-8.2); Sodium Level 140 mmol/L (136-145)
--- NOTE | 2024-06-30 14:18 | ED.VIS.GI ---
HPI HPI - GI History of Present Illness Chief Complaint: Abd Pain Informant: patient Narrative Narrative: Patient is a 24-year-old female presenting with abdominal pain and diarrhea that been going on for at least a month. Patient went to express care today because she was having increased pain and they thought she was having appendicitis and recommend she come to the ER. Patient states she has been having a daily yellow diarrhea for the past month.'s been multiple times a day. Seems to be worse when she eats. Denies any blood in her stool. It is more liquid this past week. She has a family history of ulcerative colitis and Crohn disease on her mom side. She is not sure about her dad side. She is not sure if she is lost weight. She denies any fever. Does have associated nausea but no vomiting. States that she is having burning pain in her abdomen is worse in her right lower quadrant. She also states it slater when it comes out. She denies any recent travel or camping. No other complaints or concerns at this time. Denies any urinary symptoms. Denies any concern for . [facility] Medical History Vaginal delivery Anemia affecting in third trimester History of drug abuse Suicide attempt PTSD (post-traumatic stress disorder) Substance abuse Anemia depression Depression Gestational diabetes Anxiety Home Medications ?Medication ?Instructions ?Recorded ?Last Taken ?Type lamotrigine 100 mg tablet 100 mg PO DAILY mood 04/25/23 04/30/23 22:00 History (Lamictal) amoxicillin 500 mg tablet 500 mg PO TID #30 tabs 07/21/23 Unknown Rx chlorhexidine gluconate 0.12 % 15 ml buccal BID #1,893 mL 08/21/23 Unknown Rx mouthwash naproxen 500 mg tablet 500 mg PO BID #20 tabs 08/21/23 Unknown Rx penicillin V potassium 500 mg 500 mg PO 4X/DAY #40 tabs 08/21/23 Unknown Rx tablet amoxicillin 500 mg tablet 500 mg PO TID #30 tabs 11/27/23 Unknown Rx dicyclomine 10 mg capsule 10 mg PO TID PRN abdominal pain 06/30/24 Unknown Rx #20 caps Allergy/AdvReac Type Severity Reaction Status Date / Time No Known Allergies Allergy Verified 06/30/24 12:24 Social History household members: children Smoking Status: Current some day smoker tobacco type: cigarettes substance use type: does not use ROS ROS ED Constitutional Constitutional ED: Denies chills or fever(s) Respiratory/Chest Respiratory/Chest: Denies cough or dyspnea Gastrointestinal Gastrointestinal: Reports abdominal pain, diarrhea and nausea; Denies melena or vomiting Genitourinary Genitourinary ED: Denies dysuria, hematuria or urinary frequency Musculoskeletal Musculoskeletal: Denies arthralgias or myalgias Neurologic Neurologic: Denies weakness EXAM Physical Exam Const Vital Signs: 06/30/24 12:22 06/30/24 14:48 06/30/24 16:00 Temperature 97.9 F Temperature Source Oral Pulse Rate 89 75 77 Respiratory Rate 16 16 16 Blood Pressure 121/77 H 107/64 101/72 Blood Pressure Mean 91 78 81 Pulse Ox 99 97 98 Oxygen Delivery Method Room Air Room Air Positive well nourished and well developed General Appearance ED: well developed and NAD; Negative for pallor HEENT Reports moist mucous membranes Neck supple Resp normal respiratory effort and clear to auscultation bilaterally Cardio regular rate and regular rhythm GI non-distended Inspection: Negative for abdominal distention Auscultation: normoactive bowel sounds Palpation: soft and tender RLQ, McBurney's point and periumbilical; Negative for guarding or rigid Back/Spine no CVA tenderness Neuro Sensorium / Orientation: alert Motor Exam: Negative for general weakness Psych mental status grossly normal and thought process normal Skin General Skin Exam: Negative for jaundice or pallor MDM MDM MDM Narrative Medical decision making narrative: Patient evaluated for 1 month of diarrhea with some increasing pain. She appears nontoxic. Vital signs are normal. Differential includes inflammatory bowel disease, irritable bowel syndrome, infectious diarrhea, colitis, dehydration, electrolyte abnormality and appendicitis. HPI is not really consistent with acute appendicitis a lower suspicion however she is tender in her right lower quadrant. Also consider inflammation at the terminal cecum which could be seen in inflammatory bowel disease. CT of the abdomen pelvis as well as CBC, BMP, liver panel and urinalysis was urine is obtained. Lab work largely normal. Potassium is borderline low at 3.4. Patient was given dose of Toradol in the ER with improvement of symptoms. She is resting comfortably on repeat evaluation. CT does not show any acute process. It does show a left ovarian follicle which is not consistent with her presentation today. Patient be discharged home with prescription for Bentyl and outpatient follow-up with GI. She is given return precautions. She verbalized agreement understands plan. Is requesting a work note for today and tomorrow. Lab Data Attestation: I reviewed the patient's lab results. Labs: Laboratory Results - last 24 hr 06/30/24 06/30/24 12:37 13:55 WBC 6.0 RBC 4.40 Hgb 12.2 Hct 37.7 MCV 85.7 MCH 27.7 MCHC 32.4 RDW Std Deviation 41.0 RDW Coeff of [place] 13.2 Plt Count 257 MPV 11.0 Immature Gran % (Auto) 0.200 Neut % (Auto) 48.2 Lymph % (Auto) 42.1 H [place] % (Auto) 6.7 Eos % (Auto) 2.3 Baso % (Auto) 0.5 Absolute Neuts (auto) 2.9 Absolute Lymphs (auto) 2.52 Nucleated RBC % 0 Sodium 140 Potassium 3.4 L Chloride 110 H Carbon Dioxide 23.0 Anion Gap 7 BUN 6 L Creatinine 0.59 Estim Creat Clear Calc 155.32 Est GFR (MDRD) Af Amer 160 Est GFR (MDRD) Non-Af 132 BUN/Creatinine Ratio 10.1 Glucose 90 Calcium 9.6 Total Bilirubin 0.50 AST 12 L ALT 16 Alkaline Phosphatase 83 Total Protein 7.9 Albumin 4.0 Globulin 3.9 Albumin/Globulin Ratio 1.0 Urine Color Straw Urine Clarity Clear Urine pH 7.0 Ur Specific [place] 1.005 Urine Protein Negative Urine Glucose (UA) Normal Urine Ketones Negative Urine Occult Blood Negative Urine Nitrite Negative Urine Bilirubin Negative Urine Urobilinogen Normal Ur Leukocyte Esterase 25 H Urine RBC 0 SEEN Urine WBC 0-5 SEEN Ur Squamous Epith Cells 0-5 SEEN Urine Bacteria RARE Urine Mucus 0 SEEN Urine Test Negative Radiography Diagnostic Testing: Clinical Impression(s) from Imaging Studies Abdomen/Pelvis CT 06/30/24 13:43 IMPRESSION: Left ovarian follicle. One or more dose reduction techniques were used (e.g., Automated exposure control, adjustment of the mA and/or kV according to patient size, use of iterative reconstruction technique). Reading Location: [facility] Discharge Plan Triage Chief Complaint: Abd Pain ED Provider: Delores Andrade Dx/Rx/DC Orders Clinical Impression: Diarrhea Instructions: ED Abdominal Pain Unkn Cause Fem, ED Diarrhea, Unknown Cause Prescriptions: New dicyclomine 10 mg capsule 10 mg PO TID PRN (Reason: abdominal pain) Qty: 20 0RF No Action lamotrigine [Lamictal] 100 mg tablet 100 mg PO DAILY amoxicillin 500 mg tablet 500 mg PO TID Qty: 30 0RF penicillin V potassium 500 mg tablet 500 mg PO 4X/DAY Qty: 40 0RF chlorhexidine gluconate 0.12 % mouthwash 15 ml buccal BID Qty: 1893 0RF naproxen 500 mg tablet 500 mg PO BID Qty: 20 0RF amoxicillin 500 mg tablet 500 mg PO TID Qty: 30 0RF Stand Alone Forms: ED Work / School Excuse Primary Care Provider: Care Physician,No Primary Referrals: Friend,Kash, DO [Med Staff - Active Staff] - Care Physician,No Primary [Primary Care Provider] - Activity Restrictions/Additional Instructions: Your workup was largely normal. Potassium is minimally low. Please try to eat some high potassium foods. No signs of acute appendicitis. Please follow-up with GI. Print Language: Bulgarian Disposition Disposition: Home, Self Care
[2024-06-30 14:26] LABS: Bacteria RARE /hpf (None Seen); Squamous Epithelial Cells - UA 0-5 SEEN /hpf (5-10); White Blood Cells 0-5 SEEN /hpf (0-5)
[2024-06-30 14:48] VITALS: BP 107/64; PULSE 75; RESP 16; O2SAT 97
[2024-06-30 14:53] LABS: Internal QC Validated? YES +Cl - CLEAR BKGD; Pregnancy, Urine Negative Negative
[2024-06-30 16:00] VITALS: BP 101/72; PULSE 77; RESP 16; O2SAT 98
[2024-06-30 16:20] VITALS: BP 101/72; PULSE 77; RESP 16; TEMP 36.5; O2SAT 98
--- NOTE | 2024-06-30 16:26 | CM.ED ---
Social work Reason for referral: no PCP Referral source: case find This SW identified patient's lack of PCP and need for resources. This SW entered patient's room, introducing self and role at [facility]. Patient welcomed SW visit, stating feeling better knowing that patient does not have appendicitis. Patient confirmed needing a PCP and gladly accepted resources of [facility] Provider Directory and Margi Collier information. Patient denied further needs at this time. Shanna Barrios, PRODUCTION EXPERT, ELECTROMEDICAL EQUIPMENT REPAIRER
[2024-06-30 17:13] LABS: Lipase 35 U/L (73-393)
== END 2024-06-30 16:32 | disposition home or self-care (01) ==
PROVIDERS: Emergency Provider Emergency Medicine; Referring Provider Emergency Medicine; Visit Provider Emergency Medicine
DX: R19.7 Diarrhea, unspecified (principal); F17.210 Nicotine dependence, cigarettes, uncomplicated
CPT/HCPCS: 74177; 80053; 81001; 81025; 83690; 85025; 96374; 99283; Q9967; A4216

== ENCOUNTER → 2024-07-13 | Outpatient (CLI) | payer MEDICAID, SELFPAY | END | disposition home or self-care (01) | LOC: LAB 11:41 | PROVIDERS: Referring Provider Student in an Organized Health Care Education/Training Program; Visit Provider Student in an Organized Health Care Education/Training Program | DX: Z00.00 Encounter for general adult medical examination without abnormal findings (principal) ==

== ENCOUNTER → 2024-07-14 | Outpatient (CLI) | payer MEDICAID, SELFPAY | END | disposition home or self-care (01) | LOC: LABSPEC 16:52 | PROVIDERS: Referring Provider Student in an Organized Health Care Education/Training Program; Visit Provider Student in an Organized Health Care Education/Training Program | DX: K58.2 Mixed irritable bowel syndrome (principal) | CPT/HCPCS: 83993; 87177; 87209; 87329; 83630; 87493; 87506 ==

== ENCOUNTER → 2024-07-18 | Outpatient (CLI) | payer MEDICAID, SELFPAY ==
[2024-07-21 06:08] LABS: Calprotectin, Stool 50 ug/g (0-120)
== END | disposition home or self-care (01) ==
LOC: LABSPEC 13:01
PROVIDERS: Referring Provider Student in an Organized Health Care Education/Training Program; Visit Provider Student in an Organized Health Care Education/Training Program
DX: R19.8 Other specified symptoms and signs involving the digestive system and abdomen (principal)
CPT/HCPCS: 83993; 87177; 87209; 87329